=== PATIENT | female | born 1965 | race Caucasian/White ===

== ENCOUNTER → 2017-06-02 | Outpatient (CLI) | payer MEDICARE, SELFPAY | PROVIDERS: Referring Provider Pain Medicine Interventional Pain Medicine; Visit Provider Nurse Practitioner Family | DX: M54.16 Radiculopathy, lumbar region (principal) | CPT/HCPCS: 72146; 72148; 76376 ==

== ENCOUNTER → 2017-06-13 10:35 | Outpatient (CLI) | payer MEDICARE, SELFPAY ==
[2017-06-13 10:43] LABS: Microscopic, Urine URINE MICROSCOPIC (MICROSCOPIC)
[2017-06-13 11:05] LABS: Appearance,Urine CLEAR (Clear); Bilirubin,Urine Negative (Negative); Blood, Urine Negative (Negative); Color,Urine YELLOW (Yellow); Glucose,Urine (UA) Negative (Negative); Ketones,Urine Negative (Negative); Leukocyte Esterase,Urine Negative (Negative); Nitrate,Urine Negative (Negative); Protein,Urine Negative (Negative); Urobilinogen,Urine 0.2 EU/dl (0.2)
[2017-06-13 11:15] LABS: Bacteria,Urine 1+ /lpf; WBC,Urine Occasional #/hpf (0-3)
== END ==
PROVIDERS: PCP Nurse Practitioner Family; Visit Provider Nurse Practitioner Family
DX: R30.0 Dysuria (principal)
CPT/HCPCS: 81001

== ENCOUNTER → 2017-06-26 10:07 | Outpatient (CLI) | payer MEDICARE, SELFPAY ==
--- NOTE | 2017-06-26 10:12 | CT_ITS ---
CT abdomen pelvis wo/w con Ordering Physician: Camila Pat Patient Age: 52 years: Female HISTORY: ITS.REASON: CLOT HEMATURIA hematuria passing clots. Left-sided pain. TECHNIQUE: Helical CT scanning performed the abdomen and pelvis without contrast followed by postcontrast imaging at 70 seconds and then 6-7 minute delay images abdomen and pelvis. . These postcontrast images performed following 75 cc Isovue-[id number]. COMPARISON :September 2009 CT abdomen pelvis with contrast FINDINGS Kidneys. no urinary tract calculi nor discrete obstruction . I would note that the left ureter is slightly more generous than the right in its entire course. Nonspecific but could reflect a recently passed stone. No ureteral stone evident currently. No bladder calculi or discrete bladder mass. The lung bases with mild atelectasis and scarring at deep dependent right lung base more so the left. Liver, spleen, pancreas unremarkable on this study. Post contrast. Gallbladder is been removed. This accounts for the slightly generous upper normal common duct as it approaches head of pancreas. It but no retroperitoneal adenopathy no pelvic adenopathy. Small ventrall midline hernia 4 cm superior to the umbilicus. Abdominal wall defect and millimeters transverse x 6 mm height to this there is minimal protrusion of fat 2.5 cm fat-containing hernia sac with thin wall. No inflammation. GI tract. Appendix is normal. Moderate to generous stool throughout the colon small bowel appears normal. No bowel dilatation or obstruction. The adrenals unremarkable. Pelvis. Previous hysterectomy. No adnexal mass. No Pelvic mass nor adenopathy. . Osseous. No acute findings. Mild degenerative disc space narrowing L5/S1 with moderate facet hypertrophy L5/S1 L4/5. IMPRESSION 1. No urinary tract calculi. Kidneys unremarkable 2. Only note that Left ureter is only very slightly more generous caliber entire length vs right ureter. This minor degree of asymmetry of questionable significance. May merely be normal variation, although conceivably could reflect a recently passed stone or clot with given history. 3. . Urinary bladder upper normal wall thickness No bladder calculi no discrete bladder lesions or mass appreciated on this CT survey. 4.. No acute findings abdomen nor pelvis otherwise. . No adenopathy or mass. Hysterectomy Moderate to generous stool throughout colon 5. Small fat-containing ventral hernia superior to the umbilicus incidentally noted
--- NOTE | 2017-06-26 10:43 | HMH.ITSHM ---
trazadone tizanadine oxycodone lyrica b12 shots monthly omeprazole
== END ==
PROVIDERS: Family Provider Internal Medicine Adolescent Medicine; PCP Nurse Practitioner Family; Visit Provider Nurse Practitioner Family
DX: R31.9 Hematuria, unspecified (principal)
CPT/HCPCS: 74170; 74178; Q9967

== ENCOUNTER → 2018-02-15 07:46 | Outpatient (CLI) | payer MEDICARE, SELFPAY ==
[2018-02-15 08:17] LABS: Basophils % 0.6 % (0.1-2.0); Eosinophils # 0.1 K/mm3 (0.0-0.4); Eosinophils % 2.6 % (0.1-12.0); Hematocrit 41.7 % (37.0-47.0); Hemoglobin 13.9 g/dL (12.2-16.2); Lymphocytes # 1.4 K/mm3 (0.7-4.5); Lymphocytes % 33.1 K/mm3 (10-50); Mean Corpuscular HGB Conc 33.4 g/dL (31.8-35.4); Mean Corpuscular Hemoglobin 34.9 pg (27.0-31.2); Mean Corpuscular Volume 104.6 fl (81-99); Monocytes # 0.2 K/mm3 (0.1-1.0); Monocytes % 5.2 % (1.7-9.3); Neutrophils # 2.5 K/mm3 (1.8-7.8); Neutrophils % 58.6 % (37.0-80.0); Platelet Count 218 K/mm3 (142-424); Red Blood Count 3.98 M/mm3 (4.20-5.40); Red Cell Distribution Width 12.9 % (11.5-17.5); White Blood Count 4.3 K/mm3 (4.8-10.8)
[2018-02-15 08:57] LABS: Alanine Aminotransferase 19 U/L (12-78); Albumin Level 3.7 gm/dL (3.4-5.0); Albumin/Globulin Ratio 1.2 (1.1-1.8); Alkaline Phosphatase 94 U/L (46-116); Anion Gap 9.6 mEq/L (5-15); Aspartate Amino Transferase 7 U/L (15-37); Bilirubin,Total 0.3 mg/dL (0.2-1.0); Blood Urea Nitrogen 16 mg/dL (7-18); Calcium 8.7 mg/dL (8.5-10.1); Carbon Dioxide 30 mmol/L (21.0-32.0); Chloride 109 mmol/L (98-107); Cholesterol 181 mg/dL (140-200); Creatinine,Serum 0.99 mg/dL (0.55-1.02); Estimated Glomerular Filt Rate 58 ml/min (>60); GFR (African American) 70 ML/MIN (>60); Globulin 3.1 gm/dl (1.3-3.2); Glucose 100 mg/dL (74-106); HDL Cholesterol 61 mg/dL (29-89); LDL Cholesterol 98 mg/dL (0-130); Potassium 4.6 mmoL/L (3.5-5.1); Sodium 144 mmol/L (136-145); Thyroid Stimulating Hormone 0.97 uIU/ml (0.358-3.740); Total Protein,Serum 6.8 gm/dL (6.4-8.2); Triglycerides 111 mg/dL (30-200); VLDL Cholesterol 22 mg/dL (0-40)
[2018-02-16 19:04] LABS: Vitamin B12 642 pg/mL (232-1245); Vitamin D 25 Hydroxy 38.1 ng/mL (30.0-100.0)
== END ==
PROVIDERS: PCP Internal Medicine Adolescent Medicine; Visit Provider Nurse Practitioner Family
DX: E78.00 Pure hypercholesterolemia, unspecified (principal); J41.1 Mucopurulent chronic bronchitis; M79.2 Neuralgia and neuritis, unspecified; E53.8 Deficiency of other specified B group vitamins; M85.89 Other specified disorders of bone density and structure, multiple sites
CPT/HCPCS: 36415; 80053; 80061; 82607; 82652; 84443; 85025

== ENCOUNTER → 2018-04-17 09:46 | Outpatient (CLI) | payer MEDICARE, SELFPAY ==
--- NOTE | 2018-04-17 09:48 | FL_ITS ---
EXAM: Barium swallow/esophagram. INDICATION: ITS.REASON: Dysphagia ORDERING PHYSICIAN: Dani Vallejo MD PATIENT AGE: 53 years COMPARISON: None TECHNIQUE: In the upright position the patient was observed to swallow barium in both the AP and lateral view. The cervical esophagus was examined under fluoroscopy with images obtained. The patient was then placed prone in the right anterior oblique position and was observed to swallow barium with Valsalva technique . FLUOROSCOPY TIME: 56 seconds FINDINGS: There was no evidence of aspiration. There was normal peristalsis. No filling defects or mucosal abnormalities. No masses or strictures. The esophagus is midline. There is no evidence of hernia. Small osteophytes are present anteriorly at C5-C6 and C7 causing some indentation upon the posterior aspect of the esophagus. IMPRESSION: Minimal indentation upon the posterior aspect of the esophagus from osteophytes in the cervical spine otherwise negative barium swallow
--- NOTE | 2018-04-17 09:48 | US_ITS ---
US thyroid HISTORY: ITS.REASON: Dysphagia ORDERING PHYSICIAN: Dani Vallejo MD PATIENT AGE: 53 years Comparison: None FINDINGS: The right lobe is 4.2 x 1.6 x 1.4 cm. There is a vague area of decreased echogenicity involving the lower lobe posteriorly. This area measures 9 x 7 mm and is nonspecific. The left lobe is 4 x 1.1 x 1.3 cm and has an unremarkable appearance. The isthmus is unremarkable. IMPRESSION: Possible 9 x 7 mm nodule in the lower pole on the right. Consider 6 month follow-up to confirm stability
[2018-04-17 14:09] LABS: Free T4 (Free Thyroxine) 1.12 ng/dl (0.76-1.46); Thyroid Stimulating Hormone 0.58 uIU/ml (0.358-3.740)
== END ==
PROVIDERS: PCP Nurse Practitioner Family; Visit Provider Otolaryngology
DX: R13.10 Dysphagia, unspecified (principal)
CPT/HCPCS: 36415; 74220; 76536; 84439; 84443

== ENCOUNTER → 2018-07-30 13:46 | Outpatient (CLI) | payer MEDICARE, SELFPAY ==
--- NOTE | 2018-07-30 13:48 | US_ITS ---
US thyroid HISTORY: Follow-up thyroid nodule ITS.REASON: thyroid nodule ORDERING PHYSICIAN: Dani Vallejo MD PATIENT AGE: 53 years Comparison: None FINDINGS: The right lobe is 4.4 x 1.4 x 1.4 cm. There remains a vague area of slight decreased echogenicity in the right lobe mid aspect 9 x 6 mm similar compared to the previous exam. The left lobe measures 4.1 x 1.5 x 1.7 cm.. IMPRESSION: Vague 9 mm nodule in the right lobe of the thyroid gland not significant change. Continued follow-up recommended. MRI of the neck without and with contrast may be of further value for possible nodule
== END ==
PROVIDERS: PCP Nurse Practitioner Family; Visit Provider Otolaryngology
DX: E01.0 Iodine-deficiency related diffuse (endemic) goiter (principal)
CPT/HCPCS: 76536

== ENCOUNTER → 2018-09-19 15:52 | Outpatient (CLI) | payer MEDICARE, SELFPAY ==
--- NOTE | 2018-09-19 16:00 | MR_ITS ---
MR lumbar spine wo con, MR 3-d myelogram/MRCP HISTORY: LBP X Years. Left leg pain, numbness and tingling. HX of Neuropathy. PT states left leg feels heavy. ITS.REASON: ACUTE LEFT-SIDED LOW BACK PAIN WITH LEFT SIDE SCIATICA ORDERING PHYSICIAN: Camila Pat PATIENT AGE: 53 years Comparison: MR 06/02/17 TECHNIQUE: Standard multiplanar multiecho sequences are performed without contrast. 3-D MIP and myelographic images are also rendered and reviewed FINDINGS: There is normal alignment. The spinal cord is at the L1 level. T11-T12: Minimal endplate irregularity. T12-L1: Small Schmorl's node is present along the inferior endplate of T12. L1-L2: Unremarkable L2-L3: Unremarkable. L3-L4: Unremarkable. L4-5: Minimal bulging disc along with mild facet and ligamentum flavum hypertrophy with mild left foraminal narrowing L5-S1: There is a medium-sized central/left paracentral disc herniation with inferior extrusion. This does abut the medial aspect of the left S1 nerve root and the anterior aspect of the left S2 nerve root. Previously there was a small left paracentral disc protrusion at this region. IMPRESSION: Medium sized central/left paracentral extruded herniated disc at L5-S1 within. Extrusion of the disc by approximately 1 cm abutting the medial aspect of the left S1 nerve root sleeve and the anterior aspect of the left S2 nerve root sleeve. This has developed since the previous exam
== END ==
PROVIDERS: PCP Nurse Practitioner Family; Visit Provider Nurse Practitioner Family
DX: M54.42 Lumbago with sciatica, left side (principal); M47.816 Spondylosis without myelopathy or radiculopathy, lumbar region
CPT/HCPCS: 72148; 76376

== ENCOUNTER → 2019-03-25 09:46 | Outpatient (CLI) | payer MEDICARE, SELFPAY ==
[2019-03-25 10:34] LABS: Basophils % 0.7 % (0.1-2.0); Eosinophils # 0.2 K/mm3 (0.0-0.4); Eosinophils % 3.9 % (0.1-12.0); Hematocrit 45.2 % (37.0-47.0); Hemoglobin 13.8 g/dL (12.2-16.2); Lymphocytes # 1.3 K/mm3 (0.7-4.5); Lymphocytes % 25.4 % (10-50); Mean Corpuscular HGB Conc 30.4 g/dL (31.8-35.4); Mean Corpuscular Hemoglobin 33.1 pg (27.0-31.2); Mean Corpuscular Volume 108.9 fl (81-99); Mean Platelet Volume 7.4 fl (7.4-10.4); Monocytes # 0.2 K/mm3 (0.1-1.0); Neutrophils # 3.5 K/mm3 (1.8-7.8); Platelet Count 264 K/mm3 (142-424); Red Blood Count 4.15 M/mm3 (4.20-5.40); White Blood Count 5.3 K/mm3 (4.8-10.8)
[2019-03-25 13:38] LABS: Alanine Aminotransferase 28 U/L (12-78); Albumin/Globulin Ratio 1.2 (1.1-1.8); Alkaline Phosphatase 96 U/L (46-116); Anion Gap 13.2 mEq/L (5-15); Aspartate Amino Transferase 21 U/L (15-37); Bilirubin,Total 0.4 mg/dL (0.2-1.0); Blood Urea Nitrogen 10 mg/dL (7-18); Calcium 9.4 mg/dL (8.5-10.1); Carbon Dioxide 29 mmol/L (21.0-32.0); Chloride 103 mmol/L (98-107); Chol/HDL Ratio 2.8 (1-3.5); Cholesterol 212 mg/dL (140-200); Creatinine,Serum 0.75 mg/dL (0.55-1.02); Estimated Glomerular Filt Rate 80 ml/min (>60); GFR (African American) 97 ML/MIN (>60); Globulin 3.4 gm/dl (1.3-3.2); Glucose 102 mg/dL (74-106); HDL Cholesterol 75 mg/dL (29-89); LDL Cholesterol 119 mg/dL (0-130); Potassium 4.2 mmoL/L (3.5-5.1); Sodium 141 mmol/L (136-145); Total Protein,Serum 7.4 gm/dL (6.4-8.2); Triglycerides 90 mg/dL (30-200); VLDL Cholesterol 18 mg/dL (0-40)
[2019-03-28 17:02] LABS: Vitamin D 25 Hydroxy 32.6 ng/mL (30.0-100.0)
[2019-03-29 17:25] LABS: Folate 8.3 ng/mL (>3.0); Vitamin B12 705 pg/mL (232-1245)
== END ==
PROVIDERS: Visit Provider Nurse Practitioner Family
DX: D75.89 Other specified diseases of blood and blood-forming organs (principal); Z79.899 Other long term (current) drug therapy
CPT/HCPCS: 36415; 80053; 80061; 82607; 82652; 82746; 85025

== ENCOUNTER → 2020-03-25 10:25 | Outpatient (CLI) | payer MEDICARE, SELFPAY ==
[2020-03-25 18:09] LABS: Adenovirus,PCR Not Detected (NotDetected); Bordetella Pertussis Not Detected (NotDetected); Chlamydophila Pneumoniae, PCR Not Detected (NotDetected); Coronavirus 19, PCR Not Detected (NotDetected); Coronavirus 229E Not Detected (NotDetected); Coronavirus NL63 Not Detected (NotDetected); Coronavirus OC43 Not Detected (NotDetected); Coronovirus HKU1,PCR Not Detected (NotDetected); Human Metapneumovirus Not Detected (NotDetected); Influenza A, PCR Not Detected (NotDetected); Influenza AH1, 2009 Not Detected (NotDetected); Influenza AH1, PCR Not Detected (NotDetected); Influenza AH3,PCR Not Detected (NotDetected); Influenza B, PCR Not Detected (NotDetected); Mycoplasma Pneumoniae, PCR Not Detected (NotDetected); Parainfluenza 1, PCR Not Detected (NotDetected); Parainfluenza 2, PCR Not Detected (NotDetected); Parainfluenza 3, PCR Not Detected (NotDetected); Parainfluenza 4, PCR Not Detected (NotDetected); Respiratory Syncytial Virus Not Detected (NotDetected); Rhinovirus/Enterovirus Not Detected (NotDetected)
== END ==
PROVIDERS: PCP Internal Medicine Adolescent Medicine; Visit Provider Nurse Practitioner Family
DX: R06.02 Shortness of breath (principal)
CPT/HCPCS: 87581; 87633; 87798; U0003

== ENCOUNTER → 2020-09-23 08:49 | Outpatient (CLI) | payer MEDICARE, SELFPAY ==
--- NOTE | 2020-09-23 08:55 | MM_ITS ---
PROCEDURE: MM DIG SCREENING MAMM BI W/CAD Digital Breast Tomosynthesis Included CLINICAL INDICATION: SCREENING There is no personal or family history of breast cancer. There has been a previous cyst aspiration right breast with benign findings. COMPARISON: MG DMSB DIG MAMM-SCREEN SELMA from 04/05/2013 MG DMSB DIG MAMM-SCREEN SELMA from 07/08/2014 MG DMDB DIG MAMM-DX SELMA W/CAD from 12/16/2016 TECHNIQUE: Standard CC and MLO images and 3D Tomosynthesis was obtained. R2 CAD reviewed. FINDINGS: Moderate fibroglandular densities are seen in both breast in the findings are fairly symmetrical bilaterally. There are 3-4 small oil cysts central portion right breast. There is an asymmetric nodular density inner quadrant left breast which is stable and unchanged from mammograms dating back to 04/05/2013. There is a possible new nodular density just deep to and below the nipple right breast. Recommend the patient return for spot compression views and ultrasound for additional evaluation of the lesion marked on the film. There are no suspicious microcalcifications. IMPRESSION: Moderate breast density with possible new lesion right breast BI-RAD Category: 0 Need Additional Imaging Evaluation FOLLOW-UP: IMM Immediate Follow-up Recommended (A letter has been sent to the patient regarding results of the study.) Dictated by: Dr. Shaun Horne MD 09/25/2020 12:10 Dr. Shaun Horne MD in [place] 09/25/2020 12:10
[2020-09-23 10:15] LABS: Basophils % 0.7 % (0.1-2.0); Eosinophils # 0.3 K/mm3 (0.0-0.4); Hematocrit 43.4 % (37.0-47.0); Hemoglobin 14.6 g/dL (12.2-16.2); Lymphocytes # 1.7 K/mm3 (0.7-4.5); Mean Corpuscular HGB Conc 33.6 g/dL (31.8-35.4); Mean Corpuscular Hemoglobin 33.4 pg (27.0-31.2); Mean Corpuscular Volume 99.3 fl (81-99); Mean Platelet Volume 7.1 fl (7.4-10.4); Monocytes # 0.2 K/mm3 (0.1-1.0); Monocytes % 3.7 % (1.7-9.3); Neutrophils # 3.2 K/mm3 (1.8-7.8); Neutrophils % 59.5 % (37.0-80.0); Platelet Count 265 K/mm3 (142-424); Red Blood Count 4.37 M/mm3 (4.20-5.40); Red Cell Distribution Width 13.4 % (11.5-17.5); White Blood Count 5.3 K/mm3 (4.8-10.8)
[2020-09-23 10:46] LABS: Alanine Aminotransferase 16 U/L (12-78); Albumin Level 4.7 g/dl (3.5-5.0); Albumin/Globulin Ratio 1.7 (1.1-1.8); Alkaline Phosphatase 81 U/L (38-126); Anion Gap 11.3 mEq/L (5-15); Aspartate Amino Transferase 25 U/L (14-36); Bilirubin,Total 0.5 mg/dl (0.2-1.3); Blood Urea Nitrogen 14 mg/dl (7-17); Calcium 9.6 mg/dl (8.4-10.2); Carbon Dioxide 28 mmol/L (22.0-30.0); Chloride 103 mmol/L (98-107); Chol/HDL Ratio 3.9 (1-3.5); Cholesterol 234 mg/dl (140-200); Estimated Glomerular Filt Rate 74 ml/min (>60); GFR (African American) 89 ML/MIN (>60); Globulin 2.7 g/dL (1.3-3.2); Glucose 102 mg/dl (74-100); HDL Cholesterol 60 mg/dl (40-60); Potassium 4.3 mmoL/L (3.5-5.1); Sodium 138 mmol/L (136-145); Total Protein,Serum 7.4 g/dl (6.3-8.2); Triglycerides 167 mg/dl (30-150); VLDL Cholesterol 33 mg/dL (0-40)
[2020-09-23 10:57] LABS: Direct LDL Cholesterol 126.79 mg/dL (100-129)
[2020-09-23 11:35] LABS: Vitamin B12 840 pg/mL (239-931)
[2020-09-23 14:18] LABS: 25-OH Vitamin D, Total 40.2 ng/mL (30-100)
[2020-09-24 14:12] LABS: Hemoglobin A1C 5.4 % (4.0-6.0)
== END ==
PROVIDERS: Nurse Practitioner Family; PCP Nurse Practitioner Family; Visit Provider Internal Medicine Adolescent Medicine
DX: Z12.31 Encounter for screening mammogram for malignant neoplasm of breast (principal); R73.9 Hyperglycemia, unspecified; R53.83 Other fatigue; E53.8 Deficiency of other specified B group vitamins; M79.2 Neuralgia and neuritis, unspecified; Z00.00 Encounter for general adult medical examination without abnormal findings; Z79.899 Other long term (current) drug therapy
CPT/HCPCS: 36415; 77063; 77067; 80053; 80061; 82306; 82607; 83036; 84443; 85025

== ENCOUNTER → 2020-10-14 14:38 | Outpatient (CLI) | payer MEDICARE, SELFPAY ==
--- NOTE | 2020-10-14 14:42 | MM_ITS ---
PROCEDURE: MM DIG MAMM DX UNILAT RT CAD Digital Breast Tomosynthesis Included Right breast ultrasound complete CLINICAL INDICATION: ABN MAMM COMPARISON: MG DMSB DIG MAMM-SCREEN SELMA from 07/08/2014 MG DMDB DIG MAMM-DX SELMA W/CAD from 12/16/2016 MG MM DIG SCREENING MAMM BI W/CAD from 09/23/2020 US US BREAST RT COMPLETE from 10/14/2020 TECHNIQUE: Problem solving views performed along with right breast ultrasound. FINDINGS: A 4 mm nodule is present the inferior aspect of the right breast which is well-circumscribed. No suspicious nodule is evident. Right breast ultrasound: 5 mm cyst is present in the 6 o'clock region of the right breast. There are some low level echoes peripherally. This may correspond to the mammographic abnormality. A 2 mm x 3 mm cyst is present at 11 o'clock. 3 mm cyst is present at 10 o'clock with some minimal nodularity laterally. IMPRESSION: Complicated right breast cysts. Probably benign . Recommend six-month mammographic and sonographic follow-up BI-RAD Category: 3 Probably Benign Finding Short Term Follow-up FOLLOW-UP: 6M 6Month Follow-up (A letter has been sent to the patient regarding results of the study.) Dictated by: Bethel Oglesby MD 10/16/2020 18:38 Bethel Oglesby MD in [place] 10/16/2020 18:38
== END ==
PROVIDERS: PCP Nurse Practitioner Family; Visit Provider Nurse Practitioner Family
DX: R93.89 Abnormal findings on diagnostic imaging of other specified body structures (principal); R92.8 Other abnormal and inconclusive findings on diagnostic imaging of breast
CPT/HCPCS: 76641; 77061; 77065; G0279

== ENCOUNTER → 2020-10-22 15:13 | Outpatient (CLI) | payer MEDICARE, SELFPAY ==
--- NOTE | 2020-10-22 15:15 | CT_ITS ---
PROCEDURE: CT LUNG SCREENING CLINICAL INDICATION: H/O NICOTINE DEPENDENCE COMPARISON: CT CHW CT CHEST W/ CONTRAST from 04/05/[address] CHEST W/O CONTRAST from 09/13/2013 TECHNIQUE: The exam was performed on a GE Light Speed [address] scanner using 2.90 mGy CTDI. A low dose helical CT CHEST was performed on a multi-detector scanner. All CT scans at the facility use one or more dose reduction, viz: automated exposure control, ma/kV adjustment per patient size (including targeted exams where dose is matched to indication, i.e. head), or iterative reconstruction technique. The LDCT was performed in a facility that meets the criteria for the screening program. Data regarding this exam was submitted to ACR which is an approved registry. The order for this exam indicates that it came as a result of a lung cancer screening counseling shard decision-making visit that included all the elements required of such a visit including smoking cessation. The radiologist interpreting this exam meets the CMS criteria for the LDCT lung cancer screening program. The exam is reported using the Lung-RADS classification scale and reported to the ACR registry. NOTE: This study was performed for the specific purposes of lung cancer screening and is not an alternative to diagnostic chest CT. RADIATION DOSE: CTDI vol(CT dose Index-volume) = 2.90mG DLP (Dose Length Product) = mGcm FINDINGS: Minor interstitial reticulations noted in the left upper lobe, demonstrates no significant interval change. Bilateral subpleural interstitial reticulations noted in the left lower lobes. Minor paraseptal emphysematous changes. No lobar consolidation, pleural effusions or pneumothorax. The central tracheobronchial tree is patent. Nodule in the right upper lobe measuring 0.3 cm (series 4, image 48). Unchanged nodule in the left upper lobe measuring 6 millimeters (series 3, image 29). Subpleural nodule in the left lower lobe abutting the fissure measuring 4 millimeters, unchanged. No suspicious lung nodules are noted. Calcified granuloma in the right upper lobe. The heart size is normal. No evidence of pericardial effusions. Atherosclerotic vascular calcification of the thoracic aorta and the coronary arteries are noted. Evaluation of the alejandro is limited due to lack of intravenous contrast although no gross lymphadenopathy is noted. Calcified lymph nodes noted in the mediastinum, not significant by size criteria. Evaluation of the upper abdominal solid viscera is limited due to lack of intravenous contrast. Cholecystectomy is noted. Otherwise the visualized upper abdominal solid organs are unremarkable. Neural stimulator device leads are noted in the spinal canal up to level of mid thoracic spine. Minor multilevel degenerative changes of the thoracic spine are noted. IMPRESSION: Lung-RADS Category 2 Benign Appearance or Behavior Follow-up: Noncontrast low-dose CT thorax in 1 year. Minor interstitial lung disease, demonstrates no significant interval change compared to prior study. Minor emphysematous changes. Dictated by: Joselyn Peña 10/23/2020 10:30 Joselyn Peña in [place] 10/23/2020 10:30
== END ==
PROVIDERS: PCP Nurse Practitioner Family; Visit Provider Nurse Practitioner Family
DX: Z87.891 Personal history of nicotine dependence (principal); Z12.2 Encounter for screening for malignant neoplasm of respiratory organs
CPT/HCPCS: 71271

== ENCOUNTER → 2021-02-02 11:37 | Outpatient (CLI) | payer MEDICARE, SELFPAY ==
--- NOTE | 2021-02-02 | CA_ITS ---
APPROVED REPORT Exam: Pharmacologic Technologist: Charlette Uribe Ht: 5 ft 7 in Wt: 141 lbs BSA: 1.74 m2 HR: 73 bpm BP: 122/77 mmHg Indications: HYPERtension Medical History Medications: Omeprazole,,,,, Trazadone,,,,, Flonase,,,,, Tizanidine,,,,, Pregabalin,,,,, StIOLto,,,,, Stress Test Details Test: LEXISCAN HR Resting HR: 83 bpm Max Heart Rate (APMHR): 162.063257 bpm Max HR Achieved: 116 bpm Target HR (85% APMHR): 137.581675 bpm % of APMHR: 71.60 Recovery HR: 92 bpm BP Resting BP: 122.0/77.0 mmHg Max BP: 122.0/77.0 mmHg Recovery BP: 117.0/80.0 mmHg ECG Resting ECG: Normal sinus rhythm Clinical Exercise duration: 04:00 min Highest Stage Achieved: Exercise capacity: 1.0 METs Stress ECG Conclusion Symptoms: Mild chest pressure, brief shortness of air and malaise Arrhythmias/Ectopy: None ST-T Changes: [address] depression inferiorly and 0.5 mm anterolaterally. Conclusion: EKG changes suggestive of ischemia with Lexiscan stress. Myoview images reported separately. Test Summary REST . . . . . . . Resting REST 03:20 . . 83 . 122/ 77 . . Stage 1 . . . . . . . Myoview Injected Stage 1 01:00 . . 109 . . . . Stage 2 . . . . . . . chest tightness Stage 2 01:00 . . 113 . 113/ 70 . . Stage 3 01:00 . . 110 . 116/ 71 . . Stage 4 01:00 . . 107 . 109/ 76 . Stop exercise at 04:00 RECOVERY 01:00 . . 99 . 119/ 78 . . RECOVERY 02:00 . . 92 . 119/ 78 . . RECOVERY 03:00 . . 94 . 117/ 80 . . RECOVERY 03:19 . . 97 . 117/ 80 . . Electronically signed by : Mani Allison MD 02/02/2021 18:48:32
--- NOTE | 2021-02-02 11:41 | NM_ITS ---
APPROVED REPORT Exam: Nuclear Stress Test Indication: chest pain..short of breath..palpitations..fatigue Patient Location: Outpatient Stress Tech: Charlette Uribe NM Tech:Jada Lobo, ARRT, RT (R)(N) Ht: 5 ft 7 in Wt: 141 lbs Bra Size: 34c HR: 73 bpm BP: 122/77 mmHg BSA: 1.74 m2 BMI: 22.0 History: chest pain..short of breath..palpitations..fatigue Procedure: Patient received a 0.4 mg of intravenous Lexiscan, resting heart rate 73 bpm, resting blood pressure 122/77 mmHg, with Lexiscan maximum heart rate achived was 110 bpm which is Less than 85 85 % of the maximum predicted heart rate and blood pressure was 113/70 mmHg. Electrocardiogram Resting electrocardiogram showed sinus rhythm, with Lexiscan there is almost a millimeter ST segment depression noted from the baseline EKG. The EKG portion of the Lexiscan is positive for ischemia. Cardiac Stress and Resting SPECT Images: Cardiac Stress and Resting SPECT images were obtained using technetium 99m Myoview 30.2 mCi stress and 10.55 mCi at rest. Gated SPECT for analysis of segmental wall motion and calculation of the ejection fraction also done. Cardiac stress and resting SPECT images show uniform myocardial activity without segmental perfusion abnormality, computer derived ejection fraction is over 65% with no regional wall motion abnormality, right ventricle is normal size and contractility. Conclusion: 1. The EKG portion of the Lexiscan is positive for ischemia. 2. No scintigraphic evidence of reversible ischemia seen, computer ejection fraction is 60% with no regional wall motion abnormality, right ventricle is normal size and contractility. Electronically signed by : Mani Allison MD 02/02/2021 19:12:18
--- NOTE | 2021-02-02 13:36 | HMH.ITSHM ---
Current Home Medications as stated by this patient Beverly Styles or registered representative. []VITAMIN B12 TRAZODONE PREGAVALIN OMEPRAZOLE TIZANIDINE TIOTROPIUM FLUTICASONE
== END ==
PROVIDERS: PCP Nurse Practitioner Family; Visit Provider Nurse Practitioner Family
DX: R03.0 Elevated blood-pressure reading, without diagnosis of hypertension (principal); R07.9 Chest pain, unspecified
CPT/HCPCS: 78452; 93017; A9502; J2785

== ENCOUNTER → 2021-02-04 11:55 | Outpatient (CLI) | payer MEDICARE, SELFPAY ==
[2021-02-04 12:45] LABS: Basophils % 0.9 % (0.1-2.0); Eosinophils # 0.1 K/mm3 (0.0-0.4); Eosinophils % 2.8 % (0.1-12.0); Hematocrit 42.1 % (37.0-47.0); Hemoglobin 14.3 g/dL (12.2-16.2); Lymphocytes # 1.7 K/mm3 (0.7-4.5); Lymphocytes % 35.2 % (10-50); Mean Corpuscular HGB Conc 34.1 g/dL (31.8-35.4); Mean Corpuscular Hemoglobin 35.7 pg (27.0-31.2); Mean Corpuscular Volume 104.7 fl (81-99); Mean Platelet Volume 8.6 fl (7.4-10.4); Monocytes # 0.2 K/mm3 (0.1-1.0); Monocytes % 4.3 % (1.7-9.3); Neutrophils # 2.7 K/mm3 (1.8-7.8); Neutrophils % 56.8 % (37.0-80.0); Platelet Count 260 K/mm3 (142-424); Red Blood Count 4.02 M/mm3 (4.20-5.40); Red Cell Distribution Width 12.8 % (11.5-17.5); White Blood Count 4.8 K/mm3 (4.8-10.8)
[2021-02-04 13:53] LABS: Alanine Aminotransferase 14 U/L (12-78); Albumin Level 4.5 g/dl (3.5-5.0); Albumin/Globulin Ratio 1.6 (1.1-1.8); Alkaline Phosphatase 77 U/L (38-126); Anion Gap 9.3 mEq/L (5-15); Aspartate Amino Transferase 22 U/L (14-36); Bilirubin,Total 0.4 mg/dl (0.2-1.3); Blood Urea Nitrogen 14 mg/dl (7-17); Calcium 9.5 mg/dl (8.4-10.2); Carbon Dioxide 31 mmol/L (22.0-30.0); Chloride 104 mmol/L (98-107); Chol/HDL Ratio 2.7 (1-3.5); Cholesterol 149 mg/dl (140-200); Estimated Glomerular Filt Rate 86 ml/min (>60); GFR (African American) 104 ML/MIN (>60); Globulin 2.8 g/dL (1.3-3.2); Glucose 99 mg/dl (74-100); HDL Cholesterol 55 mg/dl (40-60); Potassium 4.3 mmoL/L (3.5-5.1); Sodium 140 mmol/L (136-145); Total Protein,Serum 7.3 g/dl (6.3-8.2); Triglycerides 125 mg/dl (30-150); VLDL Cholesterol 25 mg/dL (0-40)
[2021-02-04 14:04] LABS: Direct LDL Cholesterol 62.79 mg/dL (100-129)
[2021-02-05 08:17] LABS: HSV 2 IgG, Type Spec 8.75 index (0.00-0.90)
== END ==
PROVIDERS: Nurse Practitioner Family; Visit Provider Internal Medicine Cardiovascular Disease
DX: R94.39 Abnormal result of other cardiovascular function study (principal); N76.6 Ulceration of vulva; Z79.899 Other long term (current) drug therapy
CPT/HCPCS: 36415; 80053; 80061; 85025; 86695; 86790

== ENCOUNTER → 2021-02-20 17:13 | Outpatient (CLI) | payer MEDICARE, SELFPAY | PROVIDERS: PCP Nurse Practitioner Family; Visit Provider Internal Medicine Cardiovascular Disease | DX: I20.9 Angina pectoris, unspecified (principal); R07.9 Chest pain, unspecified; R94.30 Abnormal result of cardiovascular function study, unspecified; Z01.812 Encounter for preprocedural laboratory examination; Z11.52 Encounter for screening for COVID-19 | CPT/HCPCS: C9803; U0003; U0005 ==

== ENCOUNTER 2021-02-23 07:26 | Day surgery (SDC) | payer MEDICARE, SELFPAY ==
[2021-02-23] VITALS (9 sets, daily range): BP systolic 91–120; BP diastolic 52–71; PULSE 70–79; RESP 18–20; TEMP 36.6; O2SAT 92–100; BMI 22.5
--- NOTE | 2021-02-23 | IR_ITS ---
APPROVED REPORT Patient Location: Outpatient PROCEDURES Left heart catheterization Left ventriculogram Selective coronary angiogram INDICATION Angina pectoris, Abnormal stress test Informed consent was obtained prior to the procedure. COMPLICATIONS None Estimated Blood Loss: Less than 10 mls TECHNIQUE One percent lidocaine used to anesthetize the right anterior aspect of the wrist. The right radial artery was accessed via the Seldinger technique. A 6 Croatian sheath was placed in the right radial artery. 2.5 mg of verapamil, 800 mcg of nitroglycerin, 1mg Lidocaine and 5000 U Heparin were given through the arterial sheath. The trap catheter was also used to perform left heart catheterization, left ventriculogram and selective coronary angiogram. At the end of the procedure the sheath was removed good hemostasis was achieved using Traclet band, patient was transferred to the postop holding area in stable condition. ANGIOGRAPHIC RESULTS The left main artery Normal The left anterior descending artery Is calcifications which start in the proximal segment and extend into the mid segment. There is a smooth proximal 30% and then 40 to 50% proximal stenosis. The remaining LAD is widely patent The circumflex artery Is nondominant and proximally normal with a proximal 30% stenosis in a large second obtuse marginal artery The right coronary artery Is a dominant vessel and has mid vessel 40% stenoses and distal 40% smooth stenosis The MALIN ventriculogram reveals Normal 65% The left ventricular end-diastolic pressure 10 mmHg IMPRESSION Moderate coronary artery disease as described above Normal ejection fraction Normal left ventricular end-diastolic pressure PLAN 1. Currently patient is only on one antianginal medication. I recommend maximizing medications with at least 2 antianginals 2. Recommended LDL is less than 55. Patient is currently not on a statin therefore Lipitor 40 mg daily will be started 3. At this point I am strongly in favor of medical management. I believe with tobacco cessation and appropriate antianginal medications with disease modifying medications patient's coronary disease can be stable for many years. Should patient continue to experience angina pectoris despite 2 antianginal medications then consideration will be given to stent the proximal LAD 4. Immediate avoidance of tobacco products 5. Aggressive risk factor modification Electronically signed by : Dre Kendrick MD 02/23/2021 12:03:35
--- NOTE | 2021-02-23 07:31 | CA_ITS ---
APPROVED REPORT EXAM: Comprehensive 2D, Doppler, and color-flow Echocardiogram Sample Hand: Heather Fernandez RT(R) Ht: 5 ft 7 in Wt: 144lbs BSA: 1.76 BP: 111/76 mmHg Indications: Abn GXT, CP, family history HD 2D Dimensions LVOT 1.87 cm (M/F) 1.5-2.5 LA Volume 22.10 mL LA Volume Index 12.55 mL/m2 (M/F) 16-34 M-Mode Dimensions RVDd 2.36 cm (0.9-2.6) LA Diam 3.09 cm (1.9-4.0) LVDd 4.89 cm (3.5-5.7) Ao Diam 2.62 cm (2.0-3.7) LVDs 3.82 cm (3.5-5.7) IVSd 0.57 cm (0.6-1.1) PWd 0.75 cm (0.6-1.1) EF (Teich) 44.20% FS 21.90% EDV (Teich) 112.30 mL ESV (Teich) 62.70 mL LV Diastology E Decel Time 187.00 (160-240 msec) E/A Ratio 1.1 MED E' 7.30 (< 7 cm/sec) E'/MED E' Ratio 11.00 (>14) LAT E' 9.90 (<10 cm/sec) E/LAT E' Ratio 8.11 (>14) Mitral Valve MV E Max Evert. 80.00 (40-130 cm/s) MV A Velocity 75.00 (40-130 cm/s) E/A Ratio 1.07 MV Decel. Time 187.00 (160-240 ms) MV PHT 55.00 ms Left Ventricle Left atrium is normal size, left ventricle is normal size, there is no concentric left ventricular hypertrophy, visually estimated ejection fraction 55% with no regional wall motion abnormality, diastolic parameters are within normal range. Right Ventricle Right atrium and right ventricle are normal size and contractility. Aortic Valve Aortic valve is grossly normal, there is no aortic stenosis or aortic insufficiency. Mitral Valve Mitral valve is grossly normal, there is trace mitral regurgitation. Tricuspid Valve Tricuspid valve grossly normal, there is trace tricuspid regurgitation, tricuspid regurgitation jet velocity is inadequate for calculation of the right ventricular systolic pressure. Pulmonic Valve Pulmonic valve is poorly visualized. Great Vessels Aortic root is normal size. Inferior vena cava is poorly visualized. Pericardium No significant pericardial effusion noted. Conclusion 1. Normal left ventricular size, preserved left ventricular systolic function, visually estimated ejection fraction 55% with no regional wall motion abnormality, diastolic parameters are within normal range. 2. Trace mitral and tricuspid regurgitation. 3. No significant pericardial effusion noted. Electronically signed by : Mani Allison MD 02/23/2021 17:44:42
== END 2021-02-23 15:08 | disposition home or self-care (01) ==
LOC: CATHLAB 07:28
PROVIDERS: PCP Nurse Practitioner Family; Visit Provider Internal Medicine
DX: I25.118 Atherosclerotic heart disease of native coronary artery with other forms of angina pectoris (principal); R07.9 Chest pain, unspecified; R94.30 Abnormal result of cardiovascular function study, unspecified; Z79.899 Other long term (current) drug therapy; F17.210 Nicotine dependence, cigarettes, uncomplicated
CPT/HCPCS: 93306; 93458; 99152; C1725; C1769; J1644; Q9967

== ENCOUNTER → 2021-05-21 10:48 | Outpatient (CLI) | payer MEDICARE, SELFPAY ==
--- NOTE | 2021-05-21 10:50 | FL_ITS ---
PROCEDURE: FL UPPER GI W AIR CLINICAL INDICATION: GERD COMPARISON: CT CT LUNG SCREENING from 10/22/2020 TECHNIQUE: FLUOROSCOPY TIME : 1 minutes and 30 seconds FINDINGS: There is mild amount GE reflux noted during the exam. No hiatal hernia. Mildly prominent anterior osteophytes are present at C5-C6 and C6-C7 causing mild posterior indentation upon the esophagus. There is a small diverticulum projecting off the descending portion of the duodenum. There is mild prominence of the gastric rugal folds which could be seen with gastritis. No obvious ulcer or mass. Small clips are present in the region of the thyroid gland. IMPRESSION: Mild GE reflux. Mildly prominent osteophytes at C5-C6 and C6-C7 causing minimal indentation upon the posterior aspect of the esophagus Possible gastritis Small duodenal diverticulum Dictated by: Bethel Oglesby MD 05/21/2021 13:52 Bethel Oglesby MD in [place] 05/21/2021 13:52
== END ==
PROVIDERS: PCP Nurse Practitioner Family; Visit Provider Nurse Practitioner Family
DX: K21.00 Gastro-esophageal reflux disease with esophagitis, without bleeding (principal)
CPT/HCPCS: 74246

== ENCOUNTER → 2021-06-28 16:07 | Outpatient (CLI) | payer MEDICARE, SELFPAY | PROVIDERS: PCP Nurse Practitioner Family; Visit Provider Internal Medicine Gastroenterology | DX: Z01.818 Encounter for other preprocedural examination (principal); Z11.52 Encounter for screening for COVID-19 | CPT/HCPCS: C9803; U0003; U0005 ==

== ENCOUNTER 2021-07-01 08:21 | Day surgery (SDC) | payer MEDICARE, SELFPAY ==
[2021-06-25 09:05] VITALS: BMI 22.4
[2021-07-01 08:43] VITALS: BP 149/91; PULSE 78; RESP 18; TEMP 37; O2SAT 96
--- NOTE | 2021-07-01 08:53 | P.PN_ITS ---
[facility] Anesthesia Checklist - Patient Identification Patient Identification: Arm Band - Structural Data Admitted From: Home Planned Operative Procedure/s: EGD Consent for Planned Operative Procedure(s) Verified: Yes - NPO Status Verified Time NPO: 00:00 - Additional verifications Anesthesia Reactions: No Hx Blood Transfusions: No Blood Transfusion Reaction: No - Airway Assessment C-Spine Mobility Assessed: Yes TMJ Mobility Assessed: Yes Dentition: Good Dentition - Neurological Assessment Level of Consciousness: Awake Hx Seizures: No Numbness or tingling in extremities: No - Anesthesia Plan Anesthesia Risk discussed: Yes Anesthesia Plan: Verified ASA Class: II Anesthesia Type: MAC [facility] History I have reviewed the patient's past medical history: Yes Medical History: Reports:: Coronary Artery Disease, Gastroesophageal Reflux Disease(GERD), Hypertension Denies:: Cancer, Diabetes Mellitus Type 1, Diabetes Mellitus Type 2, Internal Pacemaker, Lung Disease, MRSA, Seizures *Have you ever received a pneumonia vaccine?: Yes *Have you received a flu vaccine this season?: No Other Medical History: Reports: Arthritis, Other. Denies: Blood Transfusion Reaction Anesthesia experience/problems:: None Laterality Cases: Bilateral: Other Other Surgeries: Yes: Colonoscopy, EGD, Hysterectomy-Total, Hysterectomy- Partial, Other. No: Pacemaker Amputation: No Fractures: No - *Social History Last grade of school completed: Some college Smoking Status: Current every day smoker Tobacco Type: cigarettes # Packs/Day (cigarettes): 1 Alcohol Intake: never Alcohol Intake Frequency:: a few times a month Substance Use Type: denies use *Occupational Status:: unemployed Housing: house Household Members: spouse *Travel in the last 8 weeks: None Family Hx:: Coronary Artery Disease, Hypertension
[2021-07-01 09:48] VITALS: O2SAT 100
--- NOTE | 2021-07-01 09:58 | HMH.SCOPE ---
- Procedure: Date: 07/01/21 Patient Date of :: 1965 Procedure Performed:: EGD Indications:: Abdominal pain Performing Provider:: Karis Hood MD Referring Provider:: Lane Manzano Sedation:: Propofol Procedure:: EGD The gastroscope was gently passed through the incisoral orifice into the oral cavity and under direct visualization the esophagus was intubated. The endoscope was passed down the esophagus, through the stomach, and into the duodenum. Color, texture, mucosa, and anatomy of the esophagus, stomach, and duodenum were carefully examined with the scope. Findings:: Oropharynx: normal Esophagus: normal EG Junction: intact at 40 cm Cardia: normal Fundus: normal Body: normal Antrum: normal Duodenal bulb: normal Duodenum (second and third portion): normal Random biopsies obtained for evaluation of h.pylori infection Overall normal EGD exam No evidence of hiatus hernia or ulcer disease Specimens:: Gastric Recommendations:: Consider gastric emptying study Complications:: None Estimated blood obtained (mL): 0
[2021-07-01 10:14] VITALS: BP 118/68; PULSE 73; RESP 18; TEMP 36.4; O2SAT 94
[2021-07-01 10:24] VITALS: BP 121/77; PULSE 75; RESP 18; O2SAT 95
[2021-07-01 10:34] VITALS: BP 128/47; PULSE 75; RESP 18; O2SAT 97
[2021-07-01 10:45] VITALS: BP 141/81; PULSE 75; RESP 18; O2SAT 97
== END 2021-07-01 10:49 | disposition home or self-care (01) ==
LOC: OUTP 08:22
PROVIDERS: PCP Nurse Practitioner Family; Visit Provider Internal Medicine Gastroenterology
PROC: 0DJ08ZZ Inspection of Upper Intestinal Tract, Via Natural or Artificial Opening Endoscopic (ICD-10-PCS; CPT 43235; principal; 2021-07-01 09:30)
DX: R10.9 Unspecified abdominal pain (principal); K21.9 Gastro-esophageal reflux disease without esophagitis; I25.10 Atherosclerotic heart disease of native coronary artery without angina pectoris; I10 Essential (primary) hypertension; M19.90 Unspecified osteoarthritis, unspecified site; Z72.0 Tobacco use; Z82.49 Family history of ischemic heart disease and other diseases of the circulatory system; Z88.1 Allergy status to other antibiotic agents; Z88.6 Allergy status to analgesic agent; Z79.82 Long term (current) use of aspirin; Z79.899 Other long term (current) drug therapy
CPT/HCPCS: 43235; 88305

== ENCOUNTER 2021-11-05 15:47 | Emergency (ER) | payer MEDICARE, SELFPAY ==
[2021-11-05 16:05] VITALS: BP 138/95; PULSE 87; RESP 18; TEMP 36.9; O2SAT 97; BMI 28.3
--- NOTE | 2021-11-05 16:18 | HMH.EDUTC ---
[facility] [place] Clinical Impression: Encounter for laboratory testing for COVID-19 virus Disposition: Home, Self-Care Condition on Discharge: Good Instructions: DI for COVID-19 (Suspected or Confirmed ), Preventing the Spread of Coronavirus Discharge Instructions Additional Instructions: *Monitor Temp, Over the counter Motrin or Tylenol as directed/as needed Tylenol every 4 hours and Motrin every 6 hours (as long as your family doctor has told you that you can take it) for fever or pain. and straight to ER if unable to lower temp less than 101.0 after medication given Follow up IMMEDIATELY for new or worsening symptoms or no Noticeable improvement over the next 48-72 hours. 911 for difficulty breathing or swallowing You were tested for today for Upper Respiratory Panel with COVID19 your test result should be back in the next 24-48 hours, you results should be available on the [facility] My Health Portal Make sure to take your Vitamins Vit. C Vit D and Zinc if you can take them Referrals: Camila Pat APRN [Primary Care Provider] - As needed Time of Disposition: 16:19 Medical Decision Making - Justice Inquiry Pt receiving controlled substance: No Justice was queried for this patient: No Vital Signs: 11/05/21 16:05 Temperature 98.4 F Temperature Source Oral Pulse Rate [Right Brachial] 87 Respiratory Rate 18 Blood Pressure [Right Arm] 138/95 H Blood Pressure Mean [Right Arm] 109 Blood Pressure Source [Right Arm] Automatic Cuff Blood Pressure Position [Right Arm] Sitting 02 Sat by Pulse Oximetry 97 Oxygen Delivery Method Room Air Orders (Tests/Meds): ORDERS Category Date Time Status Covid-19 Nasal PCR ([facility]) Routine Lab 11/05/21 16:06 Received [facility] [place] HPI - General Stated complaint: Covid Test Time Seen by Provider: 11/05/21 16:18 Mode of Arrival: Ambulatory Source of Information: Patient Limitations: No Limitations Description of Symptoms (Recalled from Triage Doc. by RN): PATIENT REQUESTING COVID TEST D/T EXPOSURE. DENIES SYMPTOMS HEENT Symptoms (Recalled from RN notes): No Resp Symptoms (Recalled from RN notes): No Skin Symptoms (Recalled from RN notes): No MS Symptoms (Recalled from RN notes): No Functional Status (Recalled from RN notes): WNL - History of Present Illness Provider Complaint: Patient states that she was around her daughter that recently tested positive for COVID statse that she is not having any symptoms but wanted to get testted - Related Data Home Medications Medication Instructions Recorded Confirmed pregabalin 75 mg capsule 100 mg PO TID 08/22/17 06/25/21 trazodone 300 mg tablet 300 mg PO QHS 08/22/17 06/25/21 vitamin [id number] B1 1,000 1 ml IM MONTHLY 08/22/17 06/25/21 mcg-100 mg/mL injection solution Fluticasone Furoate [Flonase 1 spray NS DAILY 09/18/17 06/25/21 Sensimist] Tiotropium Br/Olodaterol HCl 4 gm IH NEEDED PRN 09/18/17 06/25/21 [Stiolto Respimat Inhal [place]] cyclobenzaprine 10 mg tablet 10 mg PO HS 02/04/21 06/25/21 Aspirin [Low Dose Aspirin EC] 81 mg PO DAILY 02/23/21 06/25/21 Atorvastatin Calcium [Lipitor 20mg 20 mg PO DAILY 02/23/21 06/25/21 Tab] Buspirone HCl [Buspar 10mg 10 mg PO BID 06/25/21 06/25/21 tablet] Metoprolol Succinate [Metoprolol See Rx Instructions .ROUTE .COMPLEX 06/25/21 06/25/21 Succinate 25mg Tablet*] Previous Rx's Medication Instructions Recorded nitroglycerin 0.4 mg sublingual 0.4 mg SUBLINGUAL Q5M PRN #20 tab 04/28/21 tablet omeprazole 40 mg capsule,delayed See Rx Instructions .ROUTE 07/26/21 release .COMPLEX #30 capsule Allergies Allergy/AdvReac Type Severity Reaction Status Date / Time gabapentin [From Neurontin] Allergy Mild Flushing Verified 04/28/21 08:36 doxycycline AdvReac Mild Nausea Verified 06/25/21 09:03 - Worker's Comp Is this a Worker's Comp case?: No [facility] History - Hepatitis A Screen Attestation statement:: This patient has been screened for Hepatitis A risk fa
[2021-11-05 16:22] VITALS: BP 138/95; PULSE 87; RESP 18; TEMP 36.9; O2SAT 97
== END 2021-11-05 16:23 | disposition home or self-care (01) ==
PROVIDERS: Emergency Provider Nurse Practitioner; PCP Nurse Practitioner Family
DX: Z20.822 Contact with and (suspected) exposure to COVID-19 (principal)
CPT/HCPCS: 99212; C9803; G0463; U0003; U0005

== ENCOUNTER → 2022-05-06 07:25 | Outpatient (CLI) | payer MEDICARE, SELFPAY ==
[2022-05-06 08:00] LABS: Anion Gap 14.2 mEq/L (5-15); Blood Urea Nitrogen 14 mg/dl (7-17); Calcium 9.4 mg/dl (8.4-10.2); Carbon Dioxide 34 mmol/L (22.0-30.0); Chloride 99 mmol/L (98-107); Estimated Glomerular Filt Rate 64 ml/min (>60); GFR (African American) 78 ML/MIN (>60); Glucose 110 mg/dl (74-100); Potassium 3.2 mmoL/L (3.5-5.1); Sodium 144 mmol/L (136-145)
--- NOTE | 2022-05-06 08:59 | MR_ITS ---
FINAL REPORT CLINICAL HISTORY: LUMBAR RADICULAR PAIN FINDINGS: Multiplanar MR imaging of the lumbar spine was performed without and with contrast. On the sagittal T2-weighted images, disc degeneration is seen at multiple levels. The vertebral alignment is normal. There is no evidence of fracture. There is a small cyst in the mid sacral spinal canal. The conus is seen at approximately the L1 level and has an unremarkable appearance. T11-12: An annular bulge is present. No significant canal stenosis or neuroforaminal narrowing is seen. T12-L1: An annular bulge is present. No significant canal stenosis or neuroforaminal narrowing is seen. L1-2: An annular bulge and vertebral osteophytes are present.No significant canal stenosis or neuroforaminal narrowing is seen. L2-3: An annular bulge is present. There is a small central disc protrusion. No significant canal stenosis or neuroforaminal narrowing is seen. L3-4: An annular bulge is present. No significant canal stenosis or neuroforaminal narrowing is seen. L4-5: An annular bulge is present. No significant canal stenosis. There is mild bilateral neural foraminal narrowing. No significant canal stenosis or neuroforaminal narrowing is seen. L5-S1: There is an annular disc bulge with facet arthropathy. No significant canal stenosis. There is mild right and moderate left neural foraminal narrowing. No abnormal contrast enhancement is identified. IMPRESSION: Multilevel mild degenerative disc disease and spondylosis with areas of neural foraminal narrowing as described. Small central disc protrusion at L2-3. Small cyst in the mid sacral spinal canal. Reviewed, Interpreted and Dictated by Zeb Griffin III, MD Transcribed by Maxine العراقي Authenticated and [facility]
== END ==
PROVIDERS: PCP Nurse Practitioner Family; Visit Provider Nurse Practitioner Family
DX: Z01.812 Encounter for preprocedural laboratory examination (principal); M54.16 Radiculopathy, lumbar region
CPT/HCPCS: 36415; 72158; 76376; 80048; A9576

== ENCOUNTER → 2022-08-17 13:30 | Outpatient (CLI) | payer MEDICARE, SELFPAY ==
--- NOTE | 2022-08-17 13:35 | XR_ITS ---
FINAL REPORT CLINICAL HISTORY: RT HIP PAIN FINDINGS: Right hip Two views were obtained. There is no acute fracture or dislocation. The joint spaces appear normal. There is mild vascular calcification. IMPRESSION: No acute process. Reviewed, Interpreted and Dictated by Zeb Griffin III, MD Transcribed by Lauren Ortega Authenticated and . [facility]
--- NOTE | 2022-08-17 13:35 | XR_ITS ---
FINAL REPORT CLINICAL HISTORY: LT HIP PAIN FINDINGS: Left hip Three views were obtained. There is no acute fracture or dislocation. The joint spaces appear normal. No soft tissue abnormality is identified. IMPRESSION: No acute process. Reviewed, Interpreted and Dictated by Zeb Griffin III, MD Transcribed by Lauren Ortega Authenticated and [facility]
== END ==
LOC: RAD 13:31
PROVIDERS: PCP Nurse Practitioner Family; Visit Provider Nurse Practitioner Family
DX: M25.551 Pain in right hip (principal); M25.552 Pain in left hip
CPT/HCPCS: 73502

== ENCOUNTER → 2022-09-07 12:40 | Outpatient (CLI) | payer MEDICARE, SELFPAY ==
--- NOTE | 2022-09-07 12:43 | MM_ITS ---
PROCEDURE INFORMATION: Exam: MG Bilateral Screening 3D Mammography Exam date and time: 09/07/2022 12:55 PM Age: 57 years old Clinical indication: Screening. No family history of breast cancer. TECHNIQUE: Imaging protocol: Bilateral Screening tomosynthesis and 2D mammography including computer-aided detection (CAD) when performed. COMPARISON: 1. MG MM DIG MAMM DX UNILAT RT CAD 10/14/2020 2:49 PM 2. MG MM DIG SCREENING MAMM BI W/CAD 09/23/2020 8:56 AM 3. MG DMDB DIG MAMM-DX SELMA W/CAD 12/16/2016 10:41 AM 4. MG DMSB DIG MAMM-SCREEN SELMA 07/08/2014 9:55 AM FINDINGS: MAMMOGRAPHY: Breast composition: There are scattered areas of fibroglandular density. Mass: No suspicious mass. Architectural distortion: None. Calcifications: No suspicious calcifications. Asymmetric density: None. Skin thickening: None. Axillary adenopathy: None. IMPRESSION: No mammographic evidence of malignancy. Annual screening is recommended unless otherwise clinically indicated. ASSESSMENT: BI-RADS Category 1: Negative
--- NOTE | 2022-09-07 12:44 | CT_ITS ---
FINAL REPORT CLINICAL HISTORY: 0 chest complaints, smoker x 30+ yrs, 1 ppd. Hx squamous cell cancer. COMPARISON: 10/22/2020 FINDINGS: Low-Dose Chest CT Axial images were obtained from the lung apex to the mid abdomen by computed tomography. Low-dose protocol was utilized. CTDI vol (mGy): 2.90 DLP (mGy-cm): 103.68 There are stable mildly prominent mediastinal lymph nodes. There is no axillary adenopathy. There is no hilar adenopathy. The heart is proper size. Physiologic pericardial fluid is stable There is no pleural effusion. Lung window images demonstrate a stable 6 mm left upper lobe pulmonary nodule on image 28. There is also a stable 4 mm nodule in the right upper lobe on image 28. The lungs are otherwise clear without nodule or mass. There has been no significant interval change in interlobular septal thickening with a subpleural and basilar predominance. There is some subpleural ground-glass opacity which is also stable. Limited images of the upper abdomen are unremarkable. IMPRESSION: Stable interstitial lung disease. Lung RADS category 2. Recommend 12 month follow-up low-dose chest CT. Reviewed, Interpreted and Dictated by Ellie Flores MD Transcribed by Dolores Cash Authenticated and [facility]
== END ==
PROVIDERS: PCP Nurse Practitioner Family; Visit Provider Nurse Practitioner Family
DX: Z12.31 Encounter for screening mammogram for malignant neoplasm of breast (principal); Z87.891 Personal history of nicotine dependence; Z12.2 Encounter for screening for malignant neoplasm of respiratory organs
CPT/HCPCS: 71271; 77063; 77067

== ENCOUNTER 2022-09-13 13:38 | Day surgery (SDC) | payer MEDICARE, SELFPAY ==
[2022-09-13] VITALS (11 sets, daily range): BP systolic 125–159; BP diastolic 64–102; PULSE 67–80; RESP 16–20; O2SAT 90–98; BMI 30.4
[2022-09-13 13:27] LABS: Basophils # 0.1 K/mm3 (0-0.2); Basophils % 1.3 % (0.1-2.0); Eosinophils # 0.2 K/mm3 (0.0-0.4); Hematocrit 44.8 % (37.0-47.0); Hemoglobin 14.8 g/dL (12.2-16.2); Lymphocytes # 2.1 K/mm3 (0.7-4.5); Mean Corpuscular Hemoglobin 34.2 pg (27.0-31.2); Mean Corpuscular Volume 103.6 fl (81-99); Mean Platelet Volume 7.8 fl (7.4-10.4); Monocytes # 0.3 K/mm3 (0.1-1.0); Neutrophils # 3.1 K/mm3 (1.8-7.8); Neutrophils % 53.7 % (37.0-80.0); Platelet Count 265 K/mm3 (142-424); Red Blood Count 4.32 M/mm3 (4.20-5.40); Red Cell Distribution Width 13.4 % (11.5-17.5); White Blood Count 5.8 K/mm3 (4.8-10.8)
[2022-09-13 13:34] LABS: Chloride 101 mmol/L (98-107); Potassium 3.5 mmoL/L (3.5-5.1); Sodium 141 mmol/L (136-145)
[2022-09-13 13:37] LABS: Anion Gap 12.5 mEq/L (5-15); Blood Urea Nitrogen 7 mg/dl (7-17); Carbon Dioxide 31 mmol/L (22.0-30.0); Creatinine Clearance Estimated 113 mL/min (50-200); Estimated Glomerular Filt Rate 102 ml/min (>60); GFR (African American) 124 ML/MIN (>60)
[2022-09-13 13:38] LABS: Calcium 9.3 mg/dl (8.4-10.2); Glucose 93 mg/dl (74-100)
--- NOTE | 2022-09-13 15:25 | P.CONPHA_ITS ---
PHA [facility]enter Discharge Med Natural Resource Officer: Beverly Styles has received discharge medication counseling on the following medications: ASPIRIN 81 MG DAILY ATORVASTATIN 20 MG HS BISOPROLOL 10 MG DAILY PLAVIX 75 MG DAILY RAMIPRIL 5 MG DAILY MD STOPPING METOPROLOL AT THIS TIME.
== END 2022-09-13 16:51 | disposition home or self-care (01) ==
PROVIDERS: Visit Provider Internal Medicine
DX: R07.9 Chest pain, unspecified (principal); I25.110 Atherosclerotic heart disease of native coronary artery with unstable angina pectoris; Z79.899 Other long term (current) drug therapy; F17.210 Nicotine dependence, cigarettes, uncomplicated; R94.31 Abnormal electrocardiogram [ECG] [EKG]; R06.00 Dyspnea, unspecified; E78.5 Hyperlipidemia, unspecified; J44.9 Chronic obstructive pulmonary disease, unspecified; I11.9 Hypertensive heart disease without heart failure
CPT/HCPCS: 80048; 85025; 85347; 92928; 92978; 93458; 93571; 99152; 99153; C1725; C1769; C1874; C9600; J0153; J1644; J2405; Q9967

== ENCOUNTER → 2023-03-16 10:19 | Outpatient (CLI) | payer MEDICARE, SELFPAY ==
[2023-03-16 10:35] LABS: Adenovirus F 40/41, stool Not Detected (NotDetected); Astrovirus Not Detected (NotDetected); Campylobacter Not Detected (NotDetected); Clostridium Difficile A/B, PCR Not Detected (NotDetected); Cryptosporidium Not Detected (NotDetected); Cyclospora Cayetanesis Not Detected (NotDetected); Entamoeba histolytica Not Detected (NotDetected); Enteroaggregative E coli Not Detected (NotDetected); Enteropathogenic E coli Not Detected (NotDetected); Enterotoxigenic E coli Not Detected (NotDetected); Giardia lamblia Not Detected (NotDetected); Norovirus Not Detected (NotDetected); Plesimonas Shigalloides, PCR Not Detected (NotDetected); Rotavirus A Not Detected (NotDetected); Salmonella, PCR Not Detected (NotDetected); Sapovirus Not Detected (NotDetected); Shiga-like toxin E coli Not Detected (NotDetected); Shigella Enterovasive E coli Not Detected (NotDetected); Vibrio Cholerae Not Detected (NotDetected); Vibrio, PCR Not Detected (NotDetected); Yersinia Entercolitica, PCR Not Detected (NotDetected)
== END ==
PROVIDERS: PCP Nurse Practitioner Family; Visit Provider Nurse Practitioner Family
DX: R19.7 Diarrhea, unspecified (principal)
CPT/HCPCS: 87506

== ENCOUNTER → 2023-05-22 09:58 | Outpatient (CLI) | payer MEDICARE, SELFPAY | PROVIDERS: PCP Nurse Practitioner Family; Visit Provider Internal Medicine Pulmonary Disease | DX: R06.09 Other forms of dyspnea (principal) | CPT/HCPCS: 94060; 94618; 94726; 94729 ==

== ENCOUNTER → 2023-05-25 08:01 | Outpatient (CLI) | payer MEDICARE, SELFPAY ==
--- NOTE | 2023-05-25 08:04 | CA_ITS ---
FINAL REPORT TECHNIQUE: Grayscale, color Doppler and duplex Doppler ultrasound of the kidneys, aorta and renal arteries was performed. Multiple velocities were measured. CLINICAL HISTORY: HTN, Smoker COMPARISON: None FINDINGS: Aorta velocity: 95 cm/sec Right kidney: 10.8 cm. No evidence of hydronephrosis or mass. Right intrarenal RI: 0.67-0.70 Right renal artery velocity: 154 cm/sec. Right RAR (Renal artery-Aortic Ratio): 1.62 Left Kidney: 10.2 cm. No evidence of hydronephrosis or mass. Left intrarenal RI: 0.65-0.69 Left renal artery velocity: 243 cm/sec. Left RAR (Renal Artery-Aortic Ratio): 2.55 IMPRESSION: Greater than 60% stenosis on the left. Less than 50% stenosis on the right. CT angiogram or postcontrast MR angiogram would be more sensitive for evaluation of possible renal artery stenosis. Reviewed, Interpreted and Dictated by Mohsen Rojas MD Transcribed by Garima Alcantar Authenticated and [facility]
== END ==
PROVIDERS: PCP Nurse Practitioner Family; Visit Provider Physician Assistant
DX: I25.118 Atherosclerotic heart disease of native coronary artery with other forms of angina pectoris (principal); R06.09 Other forms of dyspnea; E78.5 Hyperlipidemia, unspecified; Z87.891 Personal history of nicotine dependence; I10 Essential (primary) hypertension
CPT/HCPCS: 93976

== ENCOUNTER 2023-05-29 07:51 | Day surgery (SDC) | payer MEDICARE, SELFPAY ==
[2023-05-29] VITALS (12 sets, daily range): BP systolic 122–168; BP diastolic 79–94; PULSE 60–80; RESP 15–22; O2SAT 90–100; BMI 22.2
--- NOTE | 2023-05-29 07:15 | IR_ITS ---
APPROVED REPORT Patient Location: Outpatient Associate Professor Plant Pathology: VALERIA Ramirez RT (R) PROCEDURES Left heart catheterization Left ventriculogram Selective coronary angiogram Drug-eluting stent deployment to the second obtuse marginal artery Intravascular ultrasound to the proximal LAD Drug-eluting stent deployment to the distal right coronary Bilateral selective renal angiography INDICATION Accelerated angina pectoris, Coronary artery disease, Angiographic ambiguity in the proximal LAD preceding a stent, Abnormal renal duplex suggesting left renal artery stenosis, Renovascular hypertension Informed consent was obtained prior to the procedure. COMPLICATIONS None Estimated Blood Loss: Less than 10 mls TECHNIQUE One percent lidocaine used to anesthetize the right anterior aspect of the wrist. The right radial artery was accessed via the Seldinger technique. A 6 Kyrgyz sheath was placed in the right radial artery. 2.5 mg of Verapamil, 800 mcg of nitroglycerin, 1mg Lidocaine and 5000 U Heparin were given through the arterial sheath. The papa catheter was also used to perform left heart catheterization, left ventriculogram and selective coronary angiogram. At the end the diagnostic angiogram therapeutic Was administered giving a therapeutic ACT and the guide catheter was placed in the left main artery followed by wire down the circumflex artery. A 3.5 x 18 mm [place] frontier stent was deployed in the second obtuse marginal artery at 16 oanh reducing the stenosis to 0%. BURTON-3 flow was present before and after the procedure. Following this the guide catheter was left in the left main artery and the wire was placed down the LAD. There was haziness preceding the proximal LAD stent. Intravascular ultrasound probe was advanced which demonstrated excellent expansion of the stent and no stenosis proximal to the stent. Following this the guide catheter was placed in the right coronary artery followed by the ANGIOGRAPHIC RESULTS The left main artery Normal The left anterior descending artery Had a hazy stenosis proximal to the stent which proved to be no stenosis at all with wide patency. The proximal LAD stent was widely patent with excellent proximal distal transitioning. There are diffuse 10% luminal irregularities. The circumflex artery Is a nondominant yet still large vessel with a proximal eccentric 30% stenosis. A large second obtuse marginal artery has proximal eccentric 70% stenosis The right coronary artery Is a dominant vessel and has proximal tandem eccentric 30% stenosis with mid vessel 40% stenosis and a distal mostly eccentric 70% stenosis The MALIN ventriculogram reveals Normal at 65% The left ventricular end-diastolic pressure 15 mmHg Left renal artery singular and has an ostial smooth 20 to 30% stenosis with no hemodynamic gradient upon pullback with a 6 [place] Poppa catheter Right renal artery singular normal IMPRESSION Coronary disease as described above Successful stenting of the second obtuse marginal artery severe disease reduced to 0% with 1 drug-eluting stent Successful stenting of the distal dominant right coronary severe disease reduced to 0% with 1 drug-eluting stent Successful intravascular ultrasound the proximal LAD which demonstrated wide patency proximal to the proximal LAD stent with excellent stent apposition and expansion within the LAD Normal ejection fraction Normal left ventricular end-diastolic pressure Mild left renal artery stenosis Normal right renal artery PLAN 1. Dual antiplatelet therapy 2. Avoidance of tobacco products 3. LDL less than 55 to be achieved with high intensity statin 4. Cardiac rehabilitation 5. Aggressive medical management Electronically signed by : Dre Kendrick MD 05/29/2023 10:49:06
[2023-05-29 08:31] LABS: Basophils % 0.5 % (0.1-2.0); Chloride 99 mmol/L (98-107); Eosinophils # 0.3 K/mm3 (0.0-0.4); Eosinophils % 5.2 % (0.1-12.0); Hematocrit 40.4 % (37.0-47.0); Hemoglobin 13.8 g/dL (12.2-16.2); Lymphocytes # 1.8 K/mm3 (0.7-4.5); Lymphocytes % 33.4 % (10-50); Mean Corpuscular HGB Conc 34.1 g/dL (31.8-35.4); Mean Corpuscular Volume 99.7 fl (81-99); Mean Platelet Volume 7.2 fl (7.4-10.4); Monocytes # 0.2 K/mm3 (0.1-1.0); Monocytes % 3.8 % (1.7-9.3); Neutrophils # 3.1 K/mm3 (1.8-7.8); Neutrophils % 57.1 % (37.0-80.0); Platelet Count 189 K/mm3 (142-424); Red Blood Count 4.06 M/mm3 (4.20-5.40); Red Cell Distribution Width 13.4 % (11.5-17.5); Sodium 143 mmol/L (136-145); White Blood Count 5.4 K/mm3 (4.8-10.8)
[2023-05-29 08:34] LABS: Blood Urea Nitrogen 10 mg/dl (7-17); Carbon Dioxide 37 mmol/L (22.0-30.0); Creatinine Clearance Estimated 87 mL/min (50-200); Estimated Glomerular Filt Rate 85 ml/min (>60); GFR (African American) 103 ML/MIN (>60)
[2023-05-29 08:35] LABS: Anion Gap 9.8 mEq/L (5-15); Calcium 8.7 mg/dl (8.4-10.2); Glucose 98 mg/dl (74-100)
[2023-05-29 08:36] LABS: Potassium 2.8 mmoL/L (3.5-5.1)
== END 2023-05-29 14:19 | disposition home or self-care (01) ==
PROVIDERS: PCP Nurse Practitioner Family; Visit Provider Internal Medicine
DX: E78.5 Hyperlipidemia, unspecified (principal); I10 Essential (primary) hypertension; I25.118 Atherosclerotic heart disease of native coronary artery with other forms of angina pectoris; R06.09 Other forms of dyspnea; I70.1 Atherosclerosis of renal artery; I15.0 Renovascular hypertension; I77.1 Stricture of artery; Z79.899 Other long term (current) drug therapy
CPT/HCPCS: 36252; 80048; 85025; 92928; 92978; 93458; 99152; 99153; C1725; C1760; C1769; C1876; C9600; J1644; Q9967

== ENCOUNTER 2023-06-14 10:33 | Outpatient (CLI) | payer MEDICARE, SELFPAY ==
[2023-06-14 11:34] LABS: Basophils % 0.6 % (0.1-2.0); Eosinophils # 0.3 K/mm3 (0.0-0.4); Eosinophils % 4.4 % (0.1-12.0); Hematocrit 41.5 % (37.0-47.0); Hemoglobin 13.9 g/dL (12.2-16.2); Lymphocytes # 1.7 K/mm3 (0.7-4.5); Lymphocytes % 25.9 % (10-50); Mean Corpuscular HGB Conc 33.5 g/dL (31.8-35.4); Mean Corpuscular Hemoglobin 34.4 pg (27.0-31.2); Mean Corpuscular Volume 102.8 fl (81-99); Mean Platelet Volume 8.1 fl (7.4-10.4); Monocytes # 0.3 K/mm3 (0.1-1.0); Monocytes % 4.4 % (1.7-9.3); Neutrophils # 4.2 K/mm3 (1.8-7.8); Neutrophils % 64.7 % (37.0-80.0); Platelet Count 267 K/mm3 (142-424); Red Blood Count 4.03 M/mm3 (4.20-5.40); Red Cell Distribution Width 13.6 % (11.5-17.5); White Blood Count 6.4 K/mm3 (4.8-10.8)
[2023-06-14 12:00] LABS: Alanine Aminotransferase 14 U/L (12-78); Albumin Level 4.2 g/dl (3.5-5.0); Alkaline Phosphatase 85 U/L (38-126); Anion Gap 4.5 mEq/L (5-15); Aspartate Amino Transferase 23 U/L (14-36); Bilirubin,Direct 0.1 mg/dl (0.0-0.4); Bilirubin,Indirect 0.3 mg/dL (0.0-0.9); Bilirubin,Total 0.4 mg/dl (0.2-1.3); Bilirubin,Unconjugated 0.3 mg/dL (0.0-1.1); Blood Urea Nitrogen 8 mg/dl (7-17); Calcium 8.6 mg/dl (8.4-10.2); Carbon Dioxide 37 mmol/L (22.0-30.0); Chloride 100 mmol/L (98-107); Chol/HDL Ratio 4.1 (1-3.5); Cholesterol 197 mg/dl (140-200); Estimated Glomerular Filt Rate 73 ml/min (>60); GFR (African American) 89 ML/MIN (>60); Glucose 73 mg/dl (74-100); HDL Cholesterol 48 mg/dl (40-60); Magnesium 1.9 mg/dl (1.6-2.3); Potassium 3.5 mmoL/L (3.5-5.1); Sodium 138 mmol/L (136-145); Total Protein,Serum 7.2 g/dl (6.3-8.2); Triglycerides 169 mg/dl (30-150); VLDL Cholesterol 34 mg/dL (0-40)
[2023-06-14 12:10] LABS: Direct LDL Cholesterol 110.11 mg/dL (100-129)
[2023-06-14 12:14] LABS: Free T4 (Free Thyroxine) 1.17 ng/dl (0.78-2.19)
[2023-06-14 12:30] LABS: Thyroid Stimulating Hormone 1.25 uIU/mL (0.465-4.68)
== END 2023-06-14 23:59 ==
LOC: LAB 10:35
PROVIDERS: PCP Nurse Practitioner Family; Visit Provider Physician Assistant
DX: E78.5 Hyperlipidemia, unspecified (principal); I11.9 Hypertensive heart disease without heart failure; I25.118 Atherosclerotic heart disease of native coronary artery with other forms of angina pectoris; R06.09 Other forms of dyspnea; R19.7 Diarrhea, unspecified; Z87.891 Personal history of nicotine dependence
CPT/HCPCS: 36415; 80048; 80061; 80076; 83735; 84439; 84443; 85025

== ENCOUNTER 2023-06-14 10:49 | Outpatient (RCR) | payer MEDICARE, SELFPAY | END 2023-07-24 11:00 | disposition home or self-care (01) | LOC: PT 10:49 | PROVIDERS: Visit Provider Internal Medicine | DX: I25.10 Atherosclerotic heart disease of native coronary artery without angina pectoris (principal); Z95.5 Presence of coronary angioplasty implant and graft | CPT/HCPCS: 93798 ==

== ENCOUNTER 2023-07-04 09:54 | Outpatient (CLI) | payer MEDICARE, SELFPAY ==
--- NOTE | 2023-07-04 09:54 | NM_ITS ---
FINAL REPORT CLINICAL HISTORY: Hypoxia 10:10AM 36.4 MCI TC DTPA 10:40AM 8.71 MCI TC MAA FINDINGS: NUCLEAR MEDICINE VENTILATION AND PERFUSION IMAGING TECHNIQUE: V/Q scan is performed utilizing 36.4 technetium 99 M DTPA aerosol and IV administration of 8.71 technetium 99 M MAA. Images were obtained in AP, PA, lateral, and oblique projections. FINDINGS There is no evidence of segmental or subsegmental mismatch perfusion defects. There is deposition of pharmaceutical in the central airways. IMPRESSION: Low probability for pulmonary embolus. Reviewed, Interpreted and Dictated by Mohsen Rojas MD Transcribed by Elton Magallanes Authenticated and . [facility]
[2023-07-04] MEDS: ISOTOPE TC MAA;1 DOE (UP TO 45 MCI) 1 DOSE IV (10:44)
[2023-07-04] MEDS: SODIUM CHLORIDE 0.9% 10ML SYR (RAD ONLY) 10 ML IV (10:44)
[2023-07-04] MEDS: ISOTOPE DTPA(AEROSOL);1 DOSE (UP TO 75 MCI) IV (10:44)
== END 2023-07-04 23:59 ==
LOC: RAD 09:54
PROVIDERS: PCP Nurse Practitioner Family; Visit Provider Internal Medicine Pulmonary Disease
DX: R06.09 Other forms of dyspnea (principal)
CPT/HCPCS: 78582; A9540; A9567

== ENCOUNTER 2023-10-17 08:35 | Day surgery (SDC) | payer MEDICARE, SELFPAY ==
[2023-10-17] VITALS (12 sets, daily range): BP systolic 113–137; BP diastolic 71–95; PULSE 62–74; RESP 18; TEMP 36.6–36.7; O2SAT 95; BMI 21.6
--- NOTE | 2023-10-17 07:28 | IR_ITS ---
APPROVED REPORT Patient Location: Outpatient Tool Grinder Operator: VALERIA Ramirez RT (R) PROCEDURES Selective coronary angiogram Drug-eluting stent deployment to the proximal and mid dominant right coronary artery INDICATION Coronary artery disease, Worsening angina pectoris Informed consent was obtained prior to the procedure. COMPLICATIONS NONE Estimated Blood Loss: LESS THAN 10 ML TECHNIQUE One percent lidocaine used to anesthetize the right anterior aspect of the wrist. The right radial artery was accessed via the Seldinger technique. A 6 Wol[place] sheath was placed in the right radial artery. 2.5 mg of Verapamil, 800 mcg of nitroglycerin, 1mg Lidocaine and 5000 U Heparin were given through the arterial sheath. The papa catheter was also used to perform selective coronary angiogram. At the end of the diagnostic angiogram therapeutic heparin was administered giving a therapeutic ACT and the guide catheter was placed in the right coronary artery followed by Choice PT extra-support wire placed distally. A 3 mm x 38 mm Prad[place] frontier stent was deployed at 24 oanh reducing the stenosis. A 3.5 x 12 mm noncompliant balloon was then deployed at 24 oanh to further post dilate the entire stent. 800 mcg of intracoronary glycerin was administered after the procedure. At the end of procedure the apparatus was removed the sheath was removed and hemostasis was achieved using TR banding patient was transferred to postop holding in stable condition. BURTON-3 flow was present before and after the procedure ANGIOGRAPHIC RESULTS The left main artery Normal The left anterior descending artery Has a proximal 30 to 40% stenosis immediately proximal to a widely patent stent which has excellent distal transitioning with remaining LAD being widely patent. The circumflex artery Nondominant and has proximal 10 to 20% stenosis with a mid vessel stent which is widely patent free of in-stent restenosis with excellent proximal distal transitioning The right coronary artery Is a dominant vessel with tandem eccentric 40% stenosis in the mid vessel 70% stenosis followed by distal stent which is widely patent free of in-stent restenosis with excellent proximal distal transitioning The MALIN ventriculogram reveals Was not performed The left ventricular end-diastolic pressure Was not measured IMPRESSION Moderate disease in the proximal LAD immediately proximal to a widely patent stent Patent mid circumflex artery stent Moderate and severe tandem stenoses in the proximal and mid dominant right coronary artery with successful stenting reducing lesion to less than 10% with 1 drug-eluting stent PLAN 1. Dual antiplatelet therapy 2. Cardiac rehabilitation 3. LDL less than 55 to be achieved with high intensity statin 4. Avoidance of tobacco products 5. Risk factor modification Electronically signed by : Dre Kendrick MD 10/17/2023 10:35:14
[2023-10-17 09:10] LABS: Basophils # 0.1 K/mm3 (0-0.2); Basophils % 1.6 % (0.1-2.0); Chloride 101 mmol/L (98-107); Eosinophils # 0.9 K/mm3 (0.0-0.4); Eosinophils % 17.2 % (0.1-12.0); Hematocrit 43.6 % (37.0-47.0); Lymphocytes # 1.4 K/mm3 (0.7-4.5); Lymphocytes % 26.4 % (10-50); Mean Corpuscular HGB Conc 32.1 g/dL (31.8-35.4); Mean Corpuscular Hemoglobin 33.6 pg (27.0-31.2); Mean Corpuscular Volume 104.4 fl (81-99); Mean Platelet Volume 7.7 fl (7.4-10.4); Monocytes # 0.2 K/mm3 (0.1-1.0); Monocytes % 3.5 % (1.7-9.3); Neutrophils # 2.7 K/mm3 (1.8-7.8); Neutrophils % 51.3 % (37.0-80.0); Platelet Count 285 K/mm3 (142-424); Red Blood Count 4.18 M/mm3 (4.20-5.40); Red Cell Distribution Width 14.5 % (11.5-17.5); Sodium 143 mmol/L (136-145); White Blood Count 5.3 K/mm3 (4.8-10.8)
[2023-10-17 09:13] LABS: Blood Urea Nitrogen 9 mg/dl (7-17); Carbon Dioxide 36 mmol/L (22.0-30.0); Creatinine Clearance Estimated 84 mL/min (50-200); Estimated Glomerular Filt Rate 85 ml/min (>60); GFR (African American) 103 ML/MIN (>60)
[2023-10-17 09:14] LABS: Calcium 9.3 mg/dl (8.4-10.2); Glucose 118 mg/dl (74-100)
[2023-10-17 09:18] LABS: Anion Gap 8.9 mEq/L (5-15)
[2023-10-17 09:19] LABS: Potassium 2.9 mmoL/L (3.5-5.1)
[2023-10-17] MEDS: LIDOCAINE 1% 10ML MDV 20 ML IJ (09:34)
[2023-10-17] MEDS: HEPARIN 1,000 UNITS/500ML NS (CATH LAB) 3000 UNIT IV (09:34)
[2023-10-17] MEDS: 0.9 % SODIUM CHLORIDE 500 ML 25 ML IV (09:34)
[2023-10-17] MEDS: NITROGLYCERIN 800MCG/8ML SYR (CATH LAB) 800 MCG IA ×2 (09:35→10:12)
[2023-10-17] MEDS: HEPARIN 1,000 UNITS/ML 10ML VIAL (CATH LAB) 10000 UNIT IV (09:35)
[2023-10-17] MEDS: diphenhydrAMINE 50MG/ML VIAL 50 MG IV (09:35)
[2023-10-17] MEDS: VERAPAMIL 2.5MG/ML 2ML VIAL 2.5 MG IV (09:35)
[2023-10-17] MEDS: FENTANYL 100MCG/2ML VIAL 50 MCG IV ×2 (09:54→10:16)
[2023-10-17] MEDS: MIDAZOLAM HCL 1MG/1ML 5ML VIAL 1 MG IV (09:54)
[2023-10-17] MEDS: MIDAZOLAM 2MG/2ML VIAL 1 MG IV (10:11)
[2023-10-17] MEDS: POTASSIUM CHLORIDE 20MEQ TAB 40 MEQ PO (13:00)
[2023-10-17] MEDS: IOPAMIDOL-370 (76%);100ML BOTTLE 85 ML IV (14:14)
[2023-10-17 14:50] LABS: CATHL Activated Clotting Time 299 SEC (74-125)
== END 2023-10-17 13:50 | disposition home or self-care (01) ==
PROVIDERS: PCP Nurse Practitioner Family; Visit Provider Internal Medicine
DX: I25.118 Atherosclerotic heart disease of native coronary artery with other forms of angina pectoris (principal); R07.89 Other chest pain; R06.09 Other forms of dyspnea; I10 Essential (primary) hypertension; E78.5 Hyperlipidemia, unspecified; F17.210 Nicotine dependence, cigarettes, uncomplicated; Z79.899 Other long term (current) drug therapy
CPT/HCPCS: 80048; 85025; 85347; 92928; 93454; 99152; C1725; C1769; C1874; C9600; J1644; Q9967

== ENCOUNTER 2023-10-23 13:18 | Outpatient (CLI) | payer MEDICARE, SELFPAY ==
[2023-10-23 14:02] LABS: Basophils % 0.9 % (0.1-2.0); Eosinophils # 0.6 K/mm3 (0.0-0.4); Eosinophils % 13.2 % (0.1-12.0); Hematocrit 39.7 % (37.0-47.0); Hemoglobin 12.9 g/dL (12.2-16.2); Lymphocytes # 1.4 K/mm3 (0.7-4.5); Lymphocytes % 30.1 % (10-50); Mean Corpuscular HGB Conc 32.4 g/dL (31.8-35.4); Mean Corpuscular Hemoglobin 33.8 pg (27.0-31.2); Mean Corpuscular Volume 104.5 fl (81-99); Mean Platelet Volume 7.8 fl (7.4-10.4); Monocytes # 0.2 K/mm3 (0.1-1.0); Monocytes % 3.4 % (1.7-9.3); Neutrophils # 2.4 K/mm3 (1.8-7.8); Neutrophils % 52.4 % (37.0-80.0); Platelet Count 257 K/mm3 (142-424); Red Cell Distribution Width 14.8 % (11.5-17.5); White Blood Count 4.6 K/mm3 (4.8-10.8)
[2023-10-23 14:05] LABS: Calcium 9.1 mg/dl (8.4-10.2); Carbon Dioxide 35 mmol/L (22.0-30.0); Glucose 95 mg/dl (74-100); Potassium 3.9 mmoL/L (3.5-5.1); Sodium 143 mmol/L (136-145)
[2023-10-23 14:44] LABS: Anion Gap 10.9 mEq/L (5-15); Blood Urea Nitrogen 5 mg/dl (7-17); Chloride 101 mmol/L (98-107); Estimated Glomerular Filt Rate 102 ml/min (>60); GFR (African American) 123 ML/MIN (>60)
== END 2023-10-23 23:59 | disposition home or self-care (01) ==
LOC: LAB 13:20
PROVIDERS: PCP Nurse Practitioner Family; Visit Provider Internal Medicine
DX: I25.10 Atherosclerotic heart disease of native coronary artery without angina pectoris (principal); Z95.5 Presence of coronary angioplasty implant and graft; F17.210 Nicotine dependence, cigarettes, uncomplicated
CPT/HCPCS: 36415; 80048; 85025

== ENCOUNTER 2024-02-01 11:14 | Outpatient (CLI) | payer MEDICARE, SELFPAY ==
--- NOTE | 2024-02-01 11:23 | XR_ITS ---
FINAL REPORT CLINICAL HISTORY: LEFT ARM PAIN,LEFT WRIST DROP, ACUTE TRAUMATIC PAIN FINDINGS: Left elbow Three views were obtained. There is no acute fracture or dislocation. The joint spaces appear normal. No soft tissue abnormality is identified. IMPRESSION: No acute process. Reviewed, Interpreted and Dictated by Mohsen Rojas MD Transcribed by Lauren Ortega Authenticated and [facility]
--- NOTE | 2024-02-01 11:23 | XR_ITS ---
FINAL REPORT CLINICAL HISTORY: LEFT ARM PAIN,LEFT WRIST DROP, ACUTE TRAUMATIC PAIN FINDINGS: Left wrist Three views were obtained. There is no acute fracture or dislocation. There are minimal hypertrophic changes at the basilar joint. No soft tissue abnormality is identified. IMPRESSION: Minimal degenerative changes. Reviewed, Interpreted and Dictated by Mohsen Rojas MD Transcribed by Lauren Ortega Authenticated and [facility]
--- NOTE | 2024-02-01 11:23 | XR_ITS ---
FINAL REPORT CLINICAL HISTORY: LEFT ARM PAIN,LEFT WRIST DROP, ACUTE TRAUMATIC PAIN FINDINGS: Left forearm Two views were obtained. There is no acute fracture or dislocation. The joint spaces appear normal. No soft tissue abnormality is identified. IMPRESSION: No acute process. Reviewed, Interpreted and Dictated by Mohsen Rojas MD Transcribed by Lauren Ortega Authenticated and [facility]
[2024-02-01 12:14] LABS: Basophils % 0.7 % (0.1-2.0); Eosinophils # 0.1 K/mm3 (0.0-0.4); Hematocrit 38.7 % (37.0-47.0); Hemoglobin 12.4 g/dL (12.2-16.2); Lymphocytes # 1.5 K/mm3 (0.7-4.5); Lymphocytes % 34.3 % (10-50); Mean Corpuscular HGB Conc 31.9 g/dL (31.8-35.4); Mean Corpuscular Hemoglobin 33.8 pg (27.0-31.2); Mean Corpuscular Volume 106.1 fl (81-99); Monocytes # 0.2 K/mm3 (0.1-1.0); Monocytes % 4.4 % (1.7-9.3); Neutrophils # 2.4 K/mm3 (1.8-7.8); Neutrophils % 57.5 % (37.0-80.0); Platelet Count 211 K/mm3 (142-424); Red Blood Count 3.65 M/mm3 (4.20-5.40); Red Cell Distribution Width 15.6 % (11.5-17.5); White Blood Count 4.2 K/mm3 (4.8-10.8)
[2024-02-01 12:33] LABS: Alanine Aminotransferase 28 U/L (12-78); Albumin Level 3.6 g/dl (3.5-5.0); Albumin/Globulin Ratio 1.3 (1.1-1.8); Alkaline Phosphatase 72 U/L (38-126); Anion Gap 6.1 mEq/L (5-15); Aspartate Amino Transferase 34 U/L (14-36); Bilirubin,Total 0.7 mg/dl (0.2-1.3); Blood Urea Nitrogen 7 mg/dl (7-17); Calcium 8.9 mg/dl (8.4-10.2); Carbon Dioxide 33 mmol/L (22.0-30.0); Chloride 107 mmol/L (98-107); Chol/HDL Ratio 2.7 (1-3.5); Cholesterol 135 mg/dl (140-200); Estimated Glomerular Filt Rate 102 ml/min (>60); GFR (African American) 123 ML/MIN (>60); Globulin 2.8 g/dL (1.3-3.2); Glucose 99 mg/dl (74-100); HDL Cholesterol 50 mg/dl (40-60); Potassium 3.1 mmoL/L (3.5-5.1); Sodium 143 mmol/L (136-145); Total Protein,Serum 6.4 g/dl (6.3-8.2); Triglycerides 125 mg/dl (30-150); VLDL Cholesterol 25 mg/dL (0-40)
[2024-02-01 12:44] LABS: Direct LDL Cholesterol 56.57 mg/dL (100-129)
[2024-02-01 12:50] LABS: 25-OH Vitamin D, Total 42.9 ng/mL (30-100)
[2024-02-01 13:04] LABS: Thyroid Stimulating Hormone 1.31 uIU/mL (0.465-4.68)
[2024-02-01 13:23] LABS: Vitamin B12 816 pg/mL (239-931)
== END 2024-02-01 23:59 | disposition home or self-care (01) ==
LOC: RAD 11:16
PROVIDERS: PCP Nurse Practitioner Family; Visit Provider Nurse Practitioner Family
DX: M79.602 Pain in left arm (principal); M21.332 Wrist drop, left wrist; G89.11 Acute pain due to trauma; J96.11 Chronic respiratory failure with hypoxia; I25.10 Atherosclerotic heart disease of native coronary artery without angina pectoris; E53.8 Deficiency of other specified B group vitamins; M85.80 Other specified disorders of bone density and structure, unspecified site; F17.210 Nicotine dependence, cigarettes, uncomplicated
CPT/HCPCS: 36415; 73080; 73090; 73110; 80050; 80053; 80061; 82306; 82607; 84443; 85025

== ENCOUNTER 2024-02-21 14:48 | Outpatient (CLI) | payer MEDICARE, SELFPAY ==
--- NOTE | 2024-02-21 14:52 | CT_ITS ---
FINAL REPORT TECHNIQUE: Axial CT images of the chest were obtained without contrast. Low-dose protocol was utilized. This study was performed with techniques to keep radiation doses as low as reasonably achievable (ALARA). Individualized dose reduction techniques using automated exposure control or adjustment of mA and/or kV according to the patient's size were employed. CLINICAL HISTORY: SCREENING smoker 36 years, 1/2 ppd hx skin cancer family hx of lung cancer COMPARISON: 09/07/2022 FINDINGS: CT CHEST WITHOUT, LOW DOSE SCREENING CT Di Vol: 2.90 mGy DLP: 105.25 mGy*cm There are stable mildly enlarged mediastinal nodes which are favored to be reactive. The heart size is normal. There is no pleural or pericardial effusion. The lung windows show a stable 6 mm left upper lobe nodule best seen on series 3 image 31. There is also a stable 4 mm nodule in the right upper lobe seen on series 3 image 29. Stable mild predominantly peripheral fibrosis is noted. There is no new mass or nodule identified. Mild groundglass opacities are also stable. Limited images of the upper abdomen demonstrate no acute findings. IMPRESSION: Stable interstitial lung disease. LR Category 1: 12 month follow-up low-dose chest CT is recommended per Fleischner criteria. Reviewed, Interpreted and Dictated by Zeb Griffin III, MD Transcribed by Garima Alcantar Authenticated and [facility]
--- NOTE | 2024-02-21 14:52 | MM_ITS ---
PROCEDURE INFORMATION: Exam: MG Bilateral Screening 3D Mammography Exam date and time: 02/21/2024 3:05 PM Age: 59 years old Clinical indication: Screening examination TECHNIQUE: Imaging protocol: Bilateral Screening tomosynthesis and 2D mammography including computer-aided detection (CAD) when performed. COMPARISON: 1. MG MM DIG SCREENING MAMM BI W/CAD 09/07/2022 12:55 PM 2. MG MM DIG MAMM DX UNILAT RT CAD 10/14/2020 2:49 PM FINDINGS: MAMMOGRAPHY: Breast composition: There are scattered areas of fibroglandular density. Mass: No new or suspicious masses Architectural distortion: None. Calcifications: No suspicious calcifications. Asymmetric density: None. Skin thickening: None. Axillary adenopathy: None. IMPRESSION: No mammographic evidence of malignancy. Annual screening is recommended unless otherwise clinically indicated. ASSESSMENT: BI-RADS Category 1: Negative.
--- NOTE | 2024-02-21 14:54 | XR_ITS ---
FINAL REPORT CLINICAL HISTORY: SCREEENING COMPARISON: None FINDINGS: Using L1-4, the bone mineral density of the spine is 1.008 g/cm2, corresponding to T-score of -0.4 which is within normal limits. Using the left hip, the bone mineral density of the femoral neck is 0.677 g/cm2, corresponding to a T-score of -2.2 which is consistent with low bone density. Using the right hip, the bone mineral density of the femoral neck is 0.626 g/cm2, corresponding to a T-score of -2.0 which is consistent with low bone density. FRAX 10 year fracture risk is 1.9% for a hip fracture and 9.7% for a major osteoporotic fracture. NOTE: T-score: Standard deviation compared with peak bone mass of young adult mean. *Following the recommendations of the International Society of Bone densitometry, classification of hip BMD is based on the lower of two T-scores; total hip or femoral neck. IMPRESSION: Diminished bone mineral density consistent with low bone density. Reviewed, Interpreted and Dictated by Zeb Griffin III, MD Transcribed by Garima Alcantar Authenticated and [facility]
== END 2024-02-21 23:59 | disposition home or self-care (01) ==
LOC: RAD 14:49
PROVIDERS: PCP Nurse Practitioner Family; Visit Provider Nurse Practitioner Family
DX: Z12.31 Encounter for screening mammogram for malignant neoplasm of breast (principal); Z87.891 Personal history of nicotine dependence; M81.0 Age-related osteoporosis without current pathological fracture; Z78.0 Asymptomatic menopausal state
CPT/HCPCS: 71271; 77063; 77067; 77080

== ENCOUNTER 2024-04-15 08:14 | Day surgery (SDC) | payer MEDICARE, SELFPAY ==
[2024-04-10 13:55] VITALS: BMI 20.3
[2024-04-15] MEDS: LACTATED RINGERS 1000ML 1,000 ML 100 ML IV (08:34)
[2024-04-15 08:36] VITALS: BP 116/80; PULSE 78; RESP 18; TEMP 36.3; O2SAT 96
--- NOTE | 2024-04-15 09:11 | EXP.ANES.CKL ---
[facility] Disclaimer: The information contained in this section may have been updated after the patient was seen, as this information can be updated by other users. Medical History Diarrhea HTN (hypertension) Multiple lung nodules on CT Dyspnea on exertion Smoking greater than 30 pack years Pulmonary emphysema ILD (interstitial lung disease) Other forms of angina pectoris HLD (hyperlipidemia) Coronary artery disease Tobacco use Family history of coronary artery disease in father Surgical History H/O: hysterectomy History of cholecystectomy History of lumbar surgery History of heart artery stent Family History Other Asthma Heart attack Hypertension Stroke Social History Smoking Status: Former smoker tobacco type: cigarettes packs per day: 1 smoking status stop date: 04/02/23 second hand exposure: No alcohol intake: never substance use type: denies use current occupational status: unemployed Travel in the last 8 weeks: None household members: spouse housing: house current occupational exposures/hazards: No caffeine: Yes [facility] Anesthesia Checklist Patient Identification Patient Identification: Arm Band and Verbal (Name & ) Structural Data Admitted From: Home Planned Operative Procedure/s: EGD/Colonoscopy Consent for Planned Operative Procedure(s) Verified: Yes Verified Documents: Surgical Consent and History and Physical NPO Status Verified Time NPO: 06:00 Chart Verification Results Verified: CBC, BMP, ECG and Chest Xray Additional verifications Patient : No Anesthesia Reactions: No Hx Blood Transfusions: No Blood Transfusion Reaction: No Cardiovascular Assessment Heart Sounds: S1 & S2 Pulse Rhythm: Irregular Peripheral Edema: No Airway Assessment Mallampati Score:: Class II C-Spine Mobility Assessed: Yes TMJ Mobility Assessed: Yes Dentition: Good Dentition (Nothing loose per pt.) Neurological Assessment Level of Consciousness: Awake, Alert, Appropriate and Follows Commands Hx Seizures: No Numbness or tingling in extremities: No Anesthesia Plan Anesthesia Risk discussed: Yes Anesthesia Plan: Verified ASA Class: III Anesthesia Type: MAC
[2024-04-15 09:16] VITALS: O2SAT 96
--- NOTE | 2024-04-15 09:24 | EXP.HP ---
History of Present Illness *Admission Date: 04/15/24 *Reason for visit:: Diarrhea/GERD *History of present illness: Mrs. Styles is a 59-year-old female who is here for diarrhea and weight loss. She also has chronic GERD and has been on omeprazole. She does have a personal history of adenomatous polyps and her last colonoscopy was July 2019.. The examination is deemed medically necessary for EGD and colonoscopy. The patient has been seen, interviewed and examined prior to the procedure by both myself and the anesthesia provider. [facility] Disclaimer: The information contained in this section may have been updated after the patient was seen, as this information can be updated by other users. Medical History (Updated 04/15/24 @ 09:26 by Isaías Pena II, MD) Diarrhea HTN (hypertension) Multiple lung nodules on CT Dyspnea on exertion Smoking greater than 30 pack years Pulmonary emphysema ILD (interstitial lung disease) Other forms of angina pectoris HLD (hyperlipidemia) Coronary artery disease Tobacco use Family history of coronary artery disease in father Surgical History H/O: hysterectomy History of cholecystectomy History of lumbar surgery History of heart artery stent Family History Other Asthma Heart attack Hypertension Stroke Social History Smoking Status: Former smoker tobacco type: cigarettes packs per day: 1 smoking status stop date: 04/02/23 second hand exposure: No alcohol intake: never substance use type: denies use current occupational status: unemployed Travel in the last 8 weeks: None household members: spouse housing: house current occupational exposures/hazards: No caffeine: Yes Other Medical History Have you received the Flu Vaccine for this season: Yes Have you received the Pneumonia Vaccine: No Review of Systems Review of Systems Review of systems (narrative): Negative *Cardiovascular Comments: Negative *Gastrointestinal Comments: Negative *Genitourinary Comments: Negative *Musculoskeletal Comments: Negative *Neurologic Comments: Negative Meds Home Medications and Allergies Home Medications ?Medication ?Instructions ?Recorded ?Confirmed ?Type pregabalin 75 mg capsule (Lyrica) 100 mg PO TID neuropathy 08/22/17 04/15/24 History trazodone 300 mg tablet 300 mg PO QHS sleep 08/22/17 04/15/24 History vitamin [id number] B1 1,000 1 ml IM MONTHLY Supplement 08/22/17 04/15/24 History mcg-100 mg/mL injection solution cyclobenzaprine 10 mg tablet 10 mg PO HS SLEEP 02/04/21 04/15/24 History aspirin 81 mg tablet,delayed 81 mg PO DAILY Blood thinner 02/23/21 04/10/24 History release bupropion HCl 150 mg tablet,12 hr 150 mg PO DAILY 12/20/22 04/15/24 History sustained-release escitalopram oxalate 20 mg tablet 20 mg PO DAILY 12/20/22 04/15/24 History nitroglycerin 0.4 mg sublingual 0.4 mg sublingual Q5M PRN chest 12/20/22 04/10/24 Rx tablet pain #25 tabs fluticasone furoate 27.5 1 spray intranasal DAILY PRN 04/18/23 04/15/24 History mcg/actuation nasal allergies spray,suspension clopidogrel 75 mg tablet See Rx Instructions .Route 04/27/23 04/10/24 Rx .COMPLEX #30 tabs ramipril 5 mg capsule (Altace) 5 mg PO DAILY #90 caps 09/11/23 04/15/24 Rx omeprazole 40 mg capsule,delayed See Rx Instructions .Route 09/26/23 04/15/24 Rx release .COMPLEX #90 caps ranolazine 500 mg tablet,extended 500 mg PO BID #60 tabs 12/07/23 04/15/24 Rx release,12 hr isosorbide mononitrate 60 mg 60 mg PO DAILY #90 tabs 12/13/23 04/15/24 Rx tablet,extended release 24 hr albuterol sulfate 90 mcg/actuation See Rx Instructions .Route 02/28/24 04/15/24 Rx aerosol inhaler .COMPLEX #8.5 grams atorvastatin 40 mg tablet See Rx Instructions .Route 02/28/24 04/15/24 Rx .COMPLEX #90 tabs bisoprolol fumarate 10 mg tablet 20 mg (2 x 10 mg) PO DAILY #180 02/29/24 04/15/24 Rx tabs alendronate 35 mg tablet 35 mg PO QWEEK 03/05/24 04/15/24 History aripiprazole 5 mg tablet 5 mg PO DAILY 09/24/24 11/04/24 History sodium,potassium,mag sulfates 17.5 See Rx Instructions PO .COMPLEX 04/05/24 04/15/24 Rx gram-3.13 gram-1.6 gram oral soln #354 mL (Suprep Bowel Prep Kit) New Prescriptions to Start Prescriptions: Allergies Allergy/AdvReac Type Severity Reaction Status Date / Time gabapentin [From Neurontin] Allergy Mild Flushing Verified 04/15/24 08:31 doxycycline AdvReac Mild Nausea Verified 04/15/24 08:31 Exam Data for Last 24 hours Vital signs and Labs for Last 24 Hours: Temp Pulse Resp BP Pulse Ox O2 Del Method 97.3 F L 78 18 116/80 96 Room Air 04/15/24 08:36 04/15/24 08:36 04/15/24 08:36 04/15/24 08:36 04/15/24 08:36 04/15/24 08:36 *Routine HEENT Exam Head: Present normocephalic Eye: Present EOMI and PERRL ENT: Present mucous membranes moist *Routine Neck Exam Neck: Present supple *Routine Respiratory Exam Respiratory: Present CTA bilaterally *Routine Cardiovascular Exam Cardiovascular: Present RRR *Routine Abdominal Exam Abdominal: Present soft and normoactive bowel sounds; Absent tenderness *Routine Rectal Exam Rectal:: deferred *Routine Genitalia Exam Genitalia:: deferred *Routine Extremities Exam Extremities: Absent cyanosis, clubbing or edema *Routine Skin Exam Skin: Present warm; Absent rash *Routine Neurological Exam Neurological: Present alert and oriented X3 Assessment and Plan *Assessment and plan (1) GERD (gastroesophageal reflux disease): Status: Acute Category: Medical Code(s): K21.9 - Gastro-esophageal reflux disease without esophagitis (2) Chronic diarrhea: Status: Acute Category: Medical Code(s): K52.9 - Noninfective gastroenteritis and colitis, unspecified (3) Abnormal weight loss: Status: Acute Category: Medical Code(s): R63.4 - Abnormal weight loss (4) Personal history of adenomatous and serrated colon polyps: Status: Acute Category: Medical Code(s): Z86.0101 - Personal history of adenomatous and serrated colon polyps Plan A/P: 1. Chronic diarrhea with weight loss and GERD is the preprocedural diagnosis. The patient will be anesthetized/sedated using MAC sedation. The patient has been seen and examined. Cardiac and lung assessment prior to the examination is stable. Proceed with planned EGD and colonoscopy
--- NOTE | 2024-04-15 09:26 | HMH.PROCNOTE ---
[facility] Procedure Note Date: 04/15/24 Time: 09:34 Procedure Note:: Upper Endoscopy Procedure Report: Esophagogastroduodenoscopy with cold biopsies Endoscopost: Isaías Pena II, MD Referring Physician: NELSON Ramírez Date of Procedure: April 15, 2024 Equipment: Olympus GIF 190 standard upper endoscope Sedation: MAC sedation Indications: Mrs. Styles is a 59-year-old female who is here for diagnostic panendoscopy. She does have a history of chronic GERD and is on omeprazole. This does control her heartburn and reflux. She has no abdominal pain or dyspepsia. She reports no dysphagia. The patient has had diarrhea daily (up to 2 or 3 daily) with bowel movements that are mostly loose or watery. She does see some bile colored diarrhea. She has had prior cholecystectomy many years ago. The patient has lost 25 pounds in the last 6 to 12 months. She reports no hematochezia or bright red blood per rectum. The patient did have an EGD with Karis Hood MD in June 2021 that was nondiagnostic. She had a colonoscopy with pa in July 2019 and had 2 polyps (tubular adenomas x 2) removed. Her maternal grandfather had colon cancer. Procedure: Prior to the procedure, a history and physical exam was performed, and patient's medications and allergies were reviewed. The risks, benefits and alternatives of the sedation and procedure were discussed with the patient. All questions were answered and informed consent was obtained. The patient was brought to the procedure room. Patient identification and proposed procedure were verified by the physician and the nurse. The patient was placed in a left lateral decubitus position and the scope was passed under direct vision. Throughout the procedure, the patient's blood pressure, pulse, and oxygen saturations were monitored continuously. The upper GI endoscopy was accomplished without difficulty. The patient tolerated the procedure well. Findings: The scope was passed directly into the upper esophagus and advanced to the third portion of the duodenum. The post bulbar duodenum and duodenal bulb were normal with normal mucosa and conniventes. Cold biopsies were taken from the second and first portion of the duodenum to rule out celiac disease. The scope was withdrawn through a normal duodenal bulb and pylorus into the stomach. There was very minimal reactive gastropathy of the antrum. There was mild chronic gastritis of the body and fundus. Cold biopsies were taken from the lesser curvature to rule out H. pylori. Upon retroflexion there was no hiatal hernia. The scope was then withdrawn into the esophagus. There was no evidence of reflux esophagitis or Dillard's esophagus. The remainder of the esophageal mucosa was normal. Impression: 1. Very mild chronic gastritis Plan: I will follow-up the biopsies and proceed with diagnostic colonoscopy. The patient does have uncomplicated GERD and should not require long-term PPI.
--- NOTE | 2024-04-15 09:34 | P.PCN_ITS ---
[facility] Procedure Note Date: 04/15/24 Time: 09:52 Procedure Note:: Colonoscopy Procedure Report: Colonoscopy with cold biopsies and cold snare polypectomy Endoscopist: Isaías Pena II, MD Referring physician: Camila Pat Date of Procedure: April 15, 2024 Equipment: Olympus 190 variable stiffness pediatric colonoscope Sedation: MAC sedation Indication: Mrs. Styles is a 59-year-old female who is here for diagnostic panendoscopy. She does have a history of chronic GERD and is on omeprazole. This does control her heartburn and reflux. She has no abdominal pain or dyspepsia. She reports no dysphagia. The patient has had diarrhea daily (up to 2 or 3 daily) with bowel movements that are mostly loose or watery. She does see some bile colored diarrhea. She has had prior cholecystectomy many years ago. The patient has lost 25 pounds in the last 6 to 12 months. She reports no hematochezia or bright red blood per rectum. The patient did have an EGD with Karis Hood MD in June 2021 that was nondiagnostic. She had a colonoscopy with [facility] in July 2019 and had 2 polyps (tubular adenomas x 2) removed. Her maternal grandfather had colon cancer. Procedure: Prior to the procedure, a history and physical exam was performed, and patient's medications and allergies were reviewed. The risks, benefits and alternatives of the sedation and procedure were discussed with the patient. All questions were answered and informed consent was obtained. The patient was brought to the procedure room. Patient identification and proposed procedure were verified by the physician and the nurse. The patient was placed in a left lateral decubitus position and the scope was passed under direct vision. Throughout the procedure, the patient's blood pressure, pulse, and oxygen saturations were monitored continuously. The colonoscopy was accomplished without difficulty. The patient tolerated the procedure well. Findings: On digital rectal examination there was normal rectal tone. There were no external hemorrhoids. The colonoscope was introduced through the anal canal to the rectum and advanced to the cecum. The ileocecal valve and appendiceal orifice were identified. The scope was advanced a short distance into the ileum which appeared grossly normal. The scope was then withdrawn into the colon. The cecum, ascending, transverse, descending, sigmoid and rectum were grossly normal. Cold biopsies were taken from the right colon x 6 to rule out microscopic colitis. There were 2 diminutive hyperplastic appearing polyps (3 and 4 mm) in the rectosigmoid and removed via cold snare polypectomy. There were no other mucosal abnormalities identified. Upon retroflexion within the rectum there were grade 1-2 internal hemorrhoids.The preparation was excellent throughout with Mccausland Preparation Score of 9. The cecal time was 11 minutes. Impression: 1. Diminutive hyperplastic appearing rectosigmoid polyps x 2 2. Grade 1-2 internal hemorrhoids Plan: I will follow-up the biopsies to rule out microscopic colitis. I am going to place the patient on colestipol for bile acid diarrhea. I will have the patient follow-up as an outpatient. If biopsies are negative and she fails to improve with colestipol, would consider alosetron. If the polyps are hyperplastic, she will not require surveillance colonoscopy again for 10 years.
[2024-04-15 09:55] VITALS: BP 75/45; PULSE 64; RESP 18; TEMP 36.3; O2SAT 99
[2024-04-15 10:05] VITALS: BP 85/55; PULSE 62; RESP 18; O2SAT 98
[2024-04-15 10:15] VITALS: BP 103/63; PULSE 62; RESP 18; O2SAT 100
[2024-04-15 10:25] VITALS: BP 101/70; PULSE 66; RESP 18; O2SAT 99
== END 2024-04-15 10:25 | disposition home or self-care (01) ==
PROVIDERS: PCP Nurse Practitioner Family; Visit Provider Internal Medicine Gastroenterology
PROC: 0DJ08ZZ Inspection of Upper Intestinal Tract, Via Natural or Artificial Opening Endoscopic (ICD-10-PCS; CPT 45378; principal; 2024-04-15 10:00)
DX: D12.7 Benign neoplasm of rectosigmoid junction (principal); D12.2 Benign neoplasm of ascending colon; K64.1 Second degree hemorrhoids; K21.9 Gastro-esophageal reflux disease without esophagitis; K52.9 Noninfective gastroenteritis and colitis, unspecified; R63.4 Abnormal weight loss; Z86.0101 Personal history of adenomatous and serrated colon polyps; I10 Essential (primary) hypertension; Z79.899 Other long term (current) drug therapy; Z68.20 Body mass index [BMI] 20.0-20.9, adult
CPT/HCPCS: 43239; 45380; 45385; 88305; J7120

== ENCOUNTER 2024-07-23 09:38 | Outpatient (CLI) | payer MEDICARE, SELFPAY ==
[2024-07-23 10:00] LABS: Albumin Level 4.3 g/dl (3.5-5.0); Chloride 102 mmol/L (98-107); Sodium 141 mmol/L (136-145)
[2024-07-23 10:01] LABS: Potassium 3.4 mmoL/L (3.5-5.1)
[2024-07-23 10:03] LABS: Alanine Aminotransferase 26 U/L (12-78); Alkaline Phosphatase 102 U/L (38-126); Anion Gap 7.4 mEq/L (5-15); Aspartate Amino Transferase 28 U/L (14-36); Basophils % 0.7 % (0.1-2.0); Bilirubin,Direct 0.1 mg/dl (0.0-0.4); Bilirubin,Indirect 0.2 mg/dL (0.0-0.9); Bilirubin,Total 0.3 mg/dl (0.2-1.3); Bilirubin,Unconjugated 0.3 mg/dL (0.0-1.1); Blood Urea Nitrogen 13 mg/dl (7-17); Calcium 9.1 mg/dl (8.4-10.2); Carbon Dioxide 35 mmol/L (22.0-30.0); Cholesterol 113 mg/dl (140-200); Eosinophils # 0.4 K/mm3 (0.0-0.4); Estimated Glomerular Filt Rate 85 ml/min (>60); GFR (African American) 103 ML/MIN (>60); Glucose 88 mg/dl (74-100); Hematocrit 37.6 % (37.0-47.0); Hemoglobin 12.7 g/dL (12.2-16.2); Lymphocytes # 1.8 K/mm3 (0.7-4.5); Lymphocytes % 31.8 % (10-50); Mean Corpuscular HGB Conc 33.8 g/dL (31.8-35.4); Mean Corpuscular Hemoglobin 33.4 pg (27.0-31.2); Mean Corpuscular Volume 98.9 fl (81-99); Mean Platelet Volume 9.3 fl (7.4-10.4); Monocytes # 0.3 K/mm3 (0.1-1.0); Monocytes % 5.9 % (1.7-9.3); Neutrophils # 3.1 K/mm3 (1.8-7.8); Neutrophils % 54.4 % (37.0-80.0); Platelet Count 255 K/mm3 (142-424); Red Cell Distribution Width 12.6 % (11.5-17.5); Total Protein,Serum 7.5 g/dl (6.3-8.2); Triglycerides 117 mg/dl (30-150); VLDL Cholesterol 23 mg/dL (0-40); White Blood Count 5.6 K/mm3 (4.8-10.8)
[2024-07-23 10:04] LABS: HDL Cholesterol 38 mg/dl (40-60); Magnesium 1.7 mg/dl (1.6-2.3)
[2024-07-23 10:41] LABS: Free T4 (Free Thyroxine) 1.48 ng/dl (0.78-2.19)
[2024-07-23 12:51] LABS: Direct LDL Cholesterol 45.88 mg/dL (100-129)
[2024-07-23 13:11] LABS: Thyroid Stimulating Hormone 1.98 uIU/mL (0.465-4.68)
== END 2024-07-23 23:59 | disposition home or self-care (01) ==
LOC: LAB 09:38
PROVIDERS: PCP Nurse Practitioner Family; Visit Provider Physician Assistant
DX: I10 Essential (primary) hypertension (principal); R06.09 Other forms of dyspnea; F17.210 Nicotine dependence, cigarettes, uncomplicated; E78.2 Mixed hyperlipidemia; I20.89 Other forms of angina pectoris
CPT/HCPCS: 36415; 80048; 80061; 80076; 83735; 84439; 84443; 85025

== ENCOUNTER 2024-07-29 08:27 | Day surgery (SDC) | payer MEDICARE, SELFPAY ==
[2024-07-29] VITALS (12 sets, daily range): BP systolic 113–140; BP diastolic 70–90; PULSE 64–87; RESP 17–75; O2SAT 92–100; BMI 20.2
--- NOTE | 2024-07-29 07:05 | IR_ITS ---
APPROVED REPORT Patient Location: Outpatient PROCEDURES Left heart catheterization Left ventriculogram Selective coronary angiogram Intravascular ultrasound of the proximal LAD Intravascular ultrasound the proximal dominant right coronary INDICATION Known coronary artery disease, Accelerated angina pectoris, Angiographic ambiguity in the LAD and right coronary Informed consent was obtained prior to the procedure. COMPLICATIONS NONE Estimated Blood Loss: LESS THAN 10 ML TECHNIQUE One percent lidocaine used to anesthetize the right anterior aspect of the wrist. The right radial artery was accessed via the Seldinger technique. A 6 [place] sheath was placed in the right radial artery. 2.5 mg of Verapamil, 800 mcg of nitroglycerin, 1mg Lidocaine and 5000 U Heparin were given through the arterial sheath. The 6 [place] JL 3 guide catheter was also used to perform left heart catheterization, left ventriculogram and selective coronary angiogram. At the end the diagnostic angiogram therapeutic Was administered giving a therapeutic ACT and the guide catheters placed in left main artery followed by Choice PT export wire placed into the LAD. Intravascular ultrasound probe was advanced which demonstrated mild disease in the proximal LAD with wide patency of the stent with excellent apposition and expansion. The catheter was then removed and placed in the right coronary artery where the process was repeated. The right coronary artery had proximal mild disease with widely patent stent. The apparatus was then removed the sheath was removed and hemostasis was achieved using TR banding patient was transferred to the postop putting in stable condition ANGIOGRAPHIC RESULTS The left main artery Normal The left anterior descending artery Mild 10 to 20% proximal stenosis with stents in the proximal to mid segment which are widely patent and free of in-stent restenosis flex and proximal distal transitioning The circumflex artery Is nondominant and has proximal 10% stenosis. The mid right coronary artery has a stent which is widely patent free of in-stent restenosis with excellent proximal distal transitioning. A small to medium sized first diagonal artery has BURTON II flow with mild ostial 30% stenosis The right coronary artery Is dominant has proximal 20 to 30% stenosis with stents in the proximal mid and distal segments are widely patent free of in-stent restenosis with excellent proximal distal transitioning The MALIN ventriculogram reveals Preserved 60% The left ventricular end-diastolic pressure 15 mmHg IMPRESSION Coronary disease as described above Slow flow down the first obtuse marginal artery consistent with endothelial dysfunction Preserved ejection fraction Normal LVEDP PLAN 1. Maximize antianginal medications 2. Medical management Electronically signed by : Dre Kendrick MD 07/29/2024 11:10:49
[2024-07-29 09:00] LABS: Basophils % 0.5 % (0.1-2.0); Eosinophils # 0.4 K/mm3 (0.0-0.4); Eosinophils % 5.9 % (0.1-12.0); Hematocrit 36.1 % (37.0-47.0); Hemoglobin 12.4 g/dL (12.2-16.2); Lymphocytes # 1.7 K/mm3 (0.7-4.5); Lymphocytes % 25.6 % (10-50); Mean Corpuscular HGB Conc 34.3 g/dL (31.8-35.4); Mean Corpuscular Hemoglobin 34.2 pg (27.0-31.2); Mean Corpuscular Volume 99.4 fl (81-99); Monocytes # 0.3 K/mm3 (0.1-1.0); Monocytes % 4.9 % (1.7-9.3); Neutrophils # 4.1 K/mm3 (1.8-7.8); Neutrophils % 62.6 % (37.0-80.0); Platelet Count 205 K/mm3 (142-424); Red Blood Count 3.63 M/mm3 (4.20-5.40); White Blood Count 6.6 K/mm3 (4.8-10.8)
[2024-07-29 09:09] LABS: Chloride 103 mmol/L (98-107); Sodium 140 mmol/L (136-145)
[2024-07-29 09:12] LABS: Blood Urea Nitrogen 10 mg/dl (7-17); Calcium 8.6 mg/dl (8.4-10.2); Carbon Dioxide 35 mmol/L (22.0-30.0); Creatinine Clearance Estimated 55 mL/min (50-200); Estimated Glomerular Filt Rate 73 ml/min (>60); GFR (African American) 88 ML/MIN (>60); Glucose 104 mg/dl (74-100)
[2024-07-29] MEDS: diphenhydrAMINE 50MG/ML VIAL 50 MG IV (10:22)
[2024-07-29] MEDS: HEPARIN 1,000 UNITS/500ML NS (CATH LAB) 3000 UNIT IV (10:22)
[2024-07-29] MEDS: NITROGLYCERIN 800MCG/8ML SYR (CATH LAB) 800 MCG IA (10:23)
[2024-07-29] MEDS: MIDAZOLAM HCL 1MG/ML 5ML VIAL 1 MG IV (10:23)
[2024-07-29] MEDS: LIDOCAINE 1% 10ML MDV 20 ML IJ (10:23)
[2024-07-29] MEDS: 0.9 % SODIUM CHLORIDE 500 ML 25 ML IV (10:23)
[2024-07-29] MEDS: VERAPAMIL 2.5MG/ML 2ML VIAL 2.5 MG IV (10:23)
[2024-07-29] MEDS: FENTANYL 100MCG/2ML VIAL 50 MCG IV (10:24)
[2024-07-29] MEDS: HEPARIN 1,000 UNITS/ML 10ML VIAL (CATH LAB) 10000 UNIT IV (10:24)
[2024-07-29] MEDS: PROPOFOL 10MG/ML 20ML VIAL 30 MG IV (11:23)
[2024-07-29] MEDS: IOPAMIDOL-370 (76%);100ML BOTTLE 60 ML IV (12:03)
== END 2024-07-29 14:12 | disposition home or self-care (01) ==
PROVIDERS: PCP Nurse Practitioner Family; Visit Provider Internal Medicine
DX: I25.118 Atherosclerotic heart disease of native coronary artery with other forms of angina pectoris (principal); E78.2 Mixed hyperlipidemia; I10 Essential (primary) hypertension; F17.210 Nicotine dependence, cigarettes, uncomplicated; Z79.899 Other long term (current) drug therapy; Z82.49 Family history of ischemic heart disease and other diseases of the circulatory system; I70.1 Atherosclerosis of renal artery
CPT/HCPCS: 80048; 85025; 92978; 92979; 93458; 99152; 99153; C1725; C1769; J1200; J1644; J2250; J3010; Q9967

== ENCOUNTER 2024-08-22 18:31 | Emergency (ER) | payer MEDICARE, SELFPAY ==
[2024-08-22] VITALS (7 sets, daily range): BP systolic 130–150; BP diastolic 68–100; PULSE 57–67; RESP 13–18; TEMP 36.6; O2SAT 95–96; BMI 19.8
--- NOTE | 2024-08-22 18:50 | ECG_ITS ---
APPROVED REPORT Exam: Resting ECG HR:57 bpm ECG Measurements Heart Rate 57 AXES CO 115 P 42 QRSd 90 QRS 75 QT 421 T 66 QTc 416 Conclusion SINUS BRADYCARDIA WITH SHORT CO INTERVAL MINIMAL ST DEPRESSION [0.025+ mV ST DEPRESSION] BORDERLINE ECG Electronically signed by : SOWMYA RUIZ, 08/23/2024 10:25:03
[2024-08-22 19:52] LABS: Basophils % 0.3 % (0.1-2.0); Eosinophils % 0.5 % (0.1-12.0); Hematocrit 39.6 % (37.0-47.0); Hemoglobin 13.8 g/dL (12.2-16.2); Lymphocytes # 0.8 K/mm3 (0.7-4.5); Lymphocytes % 12.8 % (10-50); Mean Corpuscular HGB Conc 34.8 g/dL (31.8-35.4); Mean Corpuscular Hemoglobin 33.9 pg (27.0-31.2); Mean Corpuscular Volume 97.3 fl (81-99); Mean Platelet Volume 9.3 fl (7.4-10.4); Monocytes # 0.2 K/mm3 (0.1-1.0); Monocytes % 2.7 % (1.7-9.3); Neutrophils % 83.4 % (37.0-80.0); Platelet Count 214 K/mm3 (142-424); Red Blood Count 4.07 M/mm3 (4.20-5.40); Red Cell Distribution Width 12.9 % (11.5-17.5)
[2024-08-22 19:57] LABS: Chloride 100 mmol/L (98-107)
[2024-08-22 19:58] LABS: Albumin Level 4.9 g/dl (3.5-5.0); Potassium 4.6 mmoL/L (3.5-5.1); Sodium 138 mmol/L (136-145)
[2024-08-22 20:00] LABS: Alanine Aminotransferase 20 U/L (12-78); Albumin/Globulin Ratio 1.4 (1.1-1.8); Alkaline Phosphatase 97 U/L (38-126); Anion Gap 11.6 mEq/L (5-15); Aspartate Amino Transferase 28 U/L (14-36); Bilirubin,Total 0.4 mg/dl (0.2-1.3); Blood Urea Nitrogen 7 mg/dl (7-17); Carbon Dioxide 31 mmol/L (22.0-30.0); Creatinine Clearance Estimated 54 mL/min (50-200); Estimated Glomerular Filt Rate 102 ml/min (>60); GFR (African American) 123 ML/MIN (>60); Globulin 3.5 g/dL (1.3-3.2); Total Protein,Serum 8.4 g/dl (6.3-8.2)
[2024-08-22] MEDS: 0.9 % SODIUM CHLORIDE 1000ML 1,000 ML 999 ML IV (20:00)
[2024-08-22 20:01] LABS: Calcium 10.1 mg/dl (8.4-10.2); Glucose 143 mg/dl (74-100)
[2024-08-22 20:02] LABS: Microscopic, Urine URINE MICROSCOPIC (MICROSCOPIC)
[2024-08-22] MEDS: ONDANSETRON 4MG/2ML VIAL 4 MG IV (20:03)
[2024-08-22 20:05] LABS: HIV Combo NEGATIVE (Negative)
[2024-08-22 20:26] LABS: Hepatitis C Ab Qual. W/ RFX NEGATIVE (Negative)
[2024-08-22 20:32] LABS: Appearance,Urine Clear (Clear); Color,Urine Yellow (Yellow); PH,Urine 6.5 (5.0-8.5); Protein,Urine Negative (Negative)
[2024-08-22 20:33] LABS: Bilirubin,Urine Negative (Negative); Blood, Urine Negative (Negative); Glucose,Urine (UA) Negative (Negative); Ketones,Urine Negative (Negative); Leukocyte Esterase,Urine Negative (Negative); Urobilinogen,Urine 0.2 EU/dl (0.2)
--- NOTE | 2024-08-22 21:23 | [facility].EDGENADL ---
Discharge Plan Disposition Patient Disposition: Home, Self-Care Condition: Good Prescriptions Prescriptions: No Action trazodone 300 mg tablet 300 mg PO QHS pregabalin [Lyrica] 75 mg capsule 100 mg PO TID vitamin [id number] B1 1,000-100 mg/mL solution 1 ml IM MONTHLY alendronate 35 mg tablet 35 mg PO QWEEK Patient Comments: TAKE ONE TABLET BY MOUTH ONCE a WEEK cyclobenzaprine 10 mg tablet 10 mg PO HS escitalopram oxalate 20 mg tablet 20 mg PO DAILY nitroglycerin 0.4 mg tablet, sublingual 0.4 mg SUBLINGUAL Q5M PRN (Reason: chest pain) Qty: 25 0RF Rx Instructions: do not exceed 3 doses per episode ramipril [Altace] 5 mg capsule 5 mg PO DAILY Qty: 90 4RF omeprazole 40 mg capsule,delayed release(DR/EC) See Rx Instructions .ROUTE .COMPLEX Qty: 90 3RF Dose Instruction: TAKE ONE CAPSULE BY MOUTH EVERY DAY -SWALLOW WHOLE. DO NOT CRUSH OR CHEW- Rx Instructions: TAKE ONE CAPSULE BY MOUTH EVERY DAY -SWALLOW WHOLE. DO NOT CRUSH OR CHEW- atorvastatin 40 mg tablet See Rx Instructions .ROUTE .COMPLEX Qty: 90 3RF Dose Instruction: TAKE ONE TABLET BY MOUTH EVERY DAY Rx Instructions: TAKE ONE TABLET BY MOUTH EVERY DAY bisoprolol fumarate 10 mg tablet 20 mg PO DAILY Qty: 180 3RF clopidogrel 75 mg tablet See Rx Instructions .ROUTE .COMPLEX Qty: 30 11RF Dose Instruction: TAKE ONE TABLET BY MOUTH EVERY DAY Rx Instructions: TAKE ONE TABLET BY MOUTH EVERY DAY ranolazine 500 mg tablet extended release 12 hr See Rx Instructions .ROUTE .COMPLEX Qty: 180 3RF Dose Instruction: TAKE ONE TABLET BY MOUTH TWICE DAILY Rx Instructions: TAKE ONE TABLET BY MOUTH TWICE DAILY isosorbide mononitrate 60 mg tablet extended release 24 hr See Rx Instructions .ROUTE .COMPLEX Qty: 90 3RF Dose Instruction: TAKE ONE TABLET BY MOUTH EVERY DAY Rx Instructions: TAKE ONE TABLET BY MOUTH EVERY DAY albuterol sulfate 90 mcg/actuation HFA aerosol inhaler See Rx Instructions .ROUTE .COMPLEX Qty: 8.5 2RF Dose Instruction: INHALE TWO PUFFS BY MOUTH FOUR TIMES DAILY NEEDED FOR SHORTNESS OF BREATH OR wheezing Rx Instructions: INHALE TWO PUFFS BY MOUTH FOUR TIMES DAILY NEEDED FOR SHORTNESS OF BREATH OR wheezing fluticasone furoate 27.5 mcg/actuation spray,suspension 1 spray NS DAILY PRN (Reason: allergies) aspirin 81 MG tablet,delayed release (DR/EC) 81 mg PO DAILY Referrals Follow up/Referrals: Camila Pat APRN [Primary Care Provider] - See instructions Activity Restrictions/Add. Instructions Additional Instructions/Restrictions: Today your evaluated in the emergency department and you were given IV fluids. Please follow-up with your PCP within 7 days. Please return to the ED for worsening of condition. Clinical Impressions Clinical Impression: Diarrhea Instructions Patient Instructions: DI for Nausea -- Adult Print Language Print Language: Chinese Discharge ED Provider: Alberto Singleton General Adult HPI <Adelia Suazo APRN - Last Filed: 08/22/24 21:52> General Chief complaint: Nausea/Vomiting/Diarrhea Stated complaint: Diarrhea Time Seen by Provider: 08/22/24 18:49 Mode of Arrival: Wheelchair Source of Information: Patient Description of Symptoms (Recalled from ER Triage Doc. by RN): Patient states she has had diarrhea all day and is now complaining of chest pressure. States she has also had some confusion. History of Present Illness HPI narrative: patient is a 59-year-old female with PMHx history of colon polyps, chronic diarrhea, GERD, unstable angina who was recently had multiple scopes for diarrhea without diagnosis. Presents today for diarrhea that started today, patient states she is unable to eat or drink due to the diarrhea. Related Data Home Medications ?Medication ?Instructions ?Recorded ?Confirmed pregabalin 75 mg capsule (Lyrica) 100 mg PO TID neuropathy 08/22/17 07/29/24 trazodone 300 mg tablet 300 mg PO QHS sleep 08/22/17 07/29/24 vitamin [id number] B1 1,000 1 ml IM MONTHLY Supplement 08/22/17 07/29/24 mcg-100 mg/mL injection solution cyclobenzaprine 10 mg tablet 10 mg PO HS SLEEP 02/04/21 07/29/24 aspirin 81 mg tablet,delayed 81 mg PO DAILY Blood thinner 02/23/21 07/29/24 release escitalopram oxalate 20 mg tablet 20 mg PO DAILY 12/20/22 07/29/24 fluticasone furoate 27.5 1 spray intranasal DAILY PRN 04/18/23 07/29/24 mcg/actuation nasal allergies spray,suspension alendronate 35 mg tablet 35 mg PO QWEEK 03/05/24 07/29/24 Previous Rx's ?Medication ?Instructions ?Recorded nitroglycerin 0.4 mg sublingual 0.4 mg sublingual Q5M PRN chest 12/20/22 tablet pain #25 tabs ramipril 5 mg capsule (Altace) 5 mg PO DAILY #90 caps 09/11/23 omeprazole 40 mg capsule,delayed See Rx Instructions .Route 09/26/23 release .COMPLEX #90 caps atorvastatin 40 mg tablet See Rx Instructions .Route 02/28/24 .COMPLEX #90 tabs bisoprolol fumarate 10 mg tablet 20 mg (2 x 10 mg) PO DAILY #180 02/29/24 tabs clopidogrel 75 mg tablet See Rx Instructions .Route 05/01/24 .COMPLEX #30 tabs isosorbide mononitrate 60 mg See Rx Instructions .Route 07/11/24 tablet,extended release 24 hr .COMPLEX #90 tabs ranolazine 500 mg tablet,extended See Rx Instructions .Route 07/11/24 release,12 hr .COMPLEX #180 tabs albuterol sulfate 90 mcg/actuation See Rx Instructions .Route 08/01/24 aerosol inhaler .COMPLEX #8.5 grams Allergies Allergy/AdvReac Type Severity Reaction Status Date / Time gabapentin (From Neurontin) Allergy Mild Flushing Verified 07/23/24 09:11 doxycycline AdvReac Mild Nausea Verified 07/23/24 09:11 [facility] <Adelia Suazo APRN - Last Filed: 08/22/24 21:52> [facility] Disclaimer: The information contained in this section may have been updated after the patient was seen, as this information can be updated by other users. Medical History Diarrhea HTN (hypertension) Multiple lung nodules on CT Dyspnea on exertion Smoking greater than 30 pack years Pulmonary emphysema ILD (interstitial lung disease) Other forms of angina pectoris HLD (hyperlipidemia) Coronary artery disease Tobacco use Family history of coronary artery disease in father Surgical History H/O: hysterectomy History of cholecystectomy History of lumbar surgery History of heart artery stent Family History Other Asthma Heart attack Hypertension Stroke Social History Smoking Status: Former smoker tobacco type: cigarettes packs per day: 1 smoking status stop date: 04/02/23 second hand exposure: No alcohol intake: never substance use type: denies use current occupational status: unemployed Travel in the last 8 weeks: None household members: spouse housing: house current occupational exposures/hazards: No caffeine: Yes Have you lived/traveled outside [place] in past 30 days?: No Contact w/someone who lives/traveled outside [place] past 30 days?: No Exposure to someone with infectious disease in past 14 days?: No Do you have a fever (greater than 100.4 F or 38 C)?: No Have you tested positive for COVID-19: No Exposed to someone with COVID-19 in past 14 days?: No Do you have a sore throat?: No Do you have a cough?: No Do you have any weakness?: Yes Do you have any diarrhea?: Yes Are you experiencing any unusual bleeding?: No Do you have any muscle aches/pain?: No Do you have any abdominal pain?: No Are you experiencing loss of taste or smell?: No Other Medical History Have you received the Flu Vaccine for this season: Yes Have you received the Pneumonia Vaccine: No <Adelia Suazo APRN - Last Filed: 08/22/24 21:52> ROS Obtained: Yes Systems reviewed as appropriate & no additional complaints except as documented Physical Exam <Adelia Suazo APRN - Last Filed: 08/22/24 21:52> General General appearance: alert and in no apparent distress Head Head exam: atraumatic and normocephalic Eye Eye exam: Present normal appearance and PERRL ENT ENT exam: Present normal exam Neck Neck exam: Present normal inspection Chest Chest inspection: Present normal inspection and symmetric chest wall rise; Absent tenderness Respiratory Respiratory exam: Present normal lung sounds bilaterally Cardiovascular Cardiovascular exam: Present regular rate Abdominal Exam Abdominal exam: Present soft and normal bowel sounds; Absent tenderness Extremities Exam Extremities exam: Present normal inspection and full ROM Back Exam Back exam: Present normal inspection and full ROM Neurological Exam Neurological exam: Present alert and oriented X3 Psychiatric Psychiatric exam: Present normal affect and normal mood Skin Skin exam: Present warm and dry Medical Decision Making <Adelia Suazo APRN - Last Filed: 08/22/24 21:52> Medical Records Screening: Per USPSTF and CDC recommendations, given the prevalence of disease in our region, it is our hospital?s policy to screen for HIV and viral Hepatitis for all patients aged 18 and over and those with ongoing risk factors. Justice Inquiry Pt receiving controlled substance: No Justice was queried for this patient: No Vital Signs: 08/22/24 18:48 08/22/24 19:17 08/22/24 19:30 Temperature Temperature Source Pulse Rate 66 Pulse Rate [Radial] 67 Respiratory Rate 16 14 13 Blood Pressure Blood Pressure [Left Arm] 150/100 H Blood Pressure Mean [Left Arm] 116 Blood Pressure Source Blood Pressure Source [Left Arm] Automatic Cuff Blood Pressure Position Blood Pressure Position [Left Arm] Sitting 02 Sat by Pulse Oximetry 96 96 Oxygen Delivery Method Room Air 08/22/24 20:05 08/22/24 20:30 08/22/24 21:00 Temperature Temperature Source Pulse Rate 57 L 66 63 Pulse Rate [Radial] Respiratory Rate 15 15 13 Blood Pressure 149/75 H 135/93 H 138/68 Blood Pressure [Left Arm] Blood Pressure Mean [Left Arm] Blood Pressure Source Blood Pressure Source [Left Arm] Blood Pressure Position Blood Pressure Position [Left Arm] 02 Sat by Pulse Oximetry 95 95 96 Oxygen Delivery Method 08/22/24 22:00 Temperature 97.9 F Temperature Source Oral Pulse Rate 60 Pulse Rate [Radial] Respiratory Rate 18 Blood Pressure 130/74 Blood Pressure [Left Arm] Blood Pressure Mean [Left Arm] Blood Pressure Source Automatic Cuff Blood Pressure Source [Left Arm] Blood Pressure Position Supine Blood Pressure Position [Left Arm] 02 Sat by Pulse Oximetry Oxygen Delivery Method Room Air Lab Data Lab Results 08/22/24 18:56: WBC 6.0, RBC 4.07 L, Hgb 13.8, Hct 39.6, MCV 97.3, MCH 33.9 H, MCHC 34.8, RDW 12.9, Plt Count 214, MPV 9.3, Neut % (Auto) 83.4 H, Lymph % (Auto) 12.8, [place] % (Auto) 2.7, Eos % (Auto) 0.5, Baso % (Auto) 0.3, Neut # (Auto) 5.0, Lymph # (Auto) 0.8, [place] # (Auto) 0.2, Eos # (Auto) 0.0, Baso # (Auto) 0.0, Sodium 138, Potassium 4.6, Chloride 100, Carbon Dioxide 31 H, Anion Gap 11.6, BUN 7, Creatinine 0.60, Estimated Creat Clear 54, Estimated GFR 102, Est GFR ( Amer) 123, Glucose 143 H, Calcium 10.1, Total Bilirubin 0.4, AST 28, ALT 20, Alkaline Phosphatase 97, Total Protein 8.4 H, Albumin 4.9, Globulin 3.5 H, Albumin/Globulin Ratio 1.4, HCV Ab MARCO w/Rflx PCR Qn Negative, HIV Ag/Ab Combo Qual Negative 08/22/24 19:58: Urine Color Yellow, Urine Appearance Clear, Urine pH 6.5, Ur Specific [place] 1.010, Urine Protein Negative, Urine Glucose (UA) Negative, Urine Ketones Negative, Urine Blood Negative, Urine Nitrate Negative, Urine Bilirubin Negative, Urine Urobilinogen 0.2, Ur Leukocyte Esterase Negative, Urine RBC 10-20, Urine WBC Occasional, Ur Squamous Epith Cells 3-5, Urine Bacteria 1+ 08/22/24 18:56 08/22/24 18:56 Orders (Tests/Meds): ED MEDICATIONS Discontinued Medications Generic Name Dose Route Start Last Admin Trade Name Freq PRN Reason Stop Dose Admin Sodium Chloride 1,000 mls @ 999 mls/hr 08/22/24 19:42 08/22/24 20:00 Sod Chlor 0.9% 1000ml Bag IV 08/22/24 20:42 999 mls/hr .Q1H1M ONE Administration Ondansetron HCl 4 mg 08/22/24 20:01 08/22/24 20:03 Ondansetron 4mg/2ml Vial IV 08/22/24 20:02 4 mg ONCE ONE Administration ORDERS Category Date Time Status CBC w/Auto Diff [Complete Blood Count Auto Diff] Stat Lab 08/22/24 18:56 Completed CMP [Comprehensive Metabolic Panel] Stat Lab 08/22/24 18:56 Completed HIV Combo Stat Lab 08/22/24 18:56 Completed Hepatitis C Ab Qual. W/ RFX Stat Lab 08/22/24 18:56 Completed Urinalysis and Microscopic Stat Lab 08/22/24 19:58 Completed Urine Culture Stat Micro 08/22/24 19:58 Received Medical Decision Narrative: In summary, patient is a 59-year-old female with PMHx history of colon polyps, chronic diarrhea, GERD, unstable angina who was recently had multiple scopes for diarrhea without diagnosis. Presents today for diarrhea that started today, patient states she is unable to eat or drink due to the diarrhea. Patient states she wants IV fluids for rehydration. She denies any additional symptoms. Denies fever, chills, headache, visual disturbances, chest pain, shortness of breath, abdominal pain, back pain, dysuria. Differential diagnosis is chronic diarrhea, infectious process, electrolyte abnormality, dehydration. Patient was symptomatically managed with Zofran and IV fluids. Labs reviewed by me. CBC unremarkable for any leukocytosis, stable H&H. CMP unremarkable for any actionable abnormalities. Patient's urine positive for nitrites, negative for leuk esterase. Patient denied any urinary symptoms. Upon reevaluation, patient states she feels so much better and her symptoms have completely resolved. Patient is drinking water and Gatorade at bedside without difficulty. I discussed with her and her that she will need to increase fluid intake and follow-up with PCP within 7 days. We discussed very strict return precautions to the ED and patient verbalized understanding. <Alberto Singleton MD - Last Filed: 08/22/24 22:14> Vital Signs: 08/22/24 18:48 08/22/24 19:17 08/22/24 19:30 Temperature Temperature Source Pulse Rate 66 Pulse Rate [Radial] 67 Respiratory Rate 16 14 13 Blood Pressure Blood Pressure [Left Arm] 150/100 H Blood Pressure Mean [Left Arm] 116 Blood Pressure Source Blood Pressure Source [Left Arm] Automatic Cuff Blood Pressure Position Blood Pressure Position [Left Arm] Sitting 02 Sat by Pulse Oximetry 96 96 Oxygen Delivery Method Room Air 08/22/24 20:05 08/22/24 20:30 08/22/24 21:00 Temperature Temperature Source Pulse Rate 57 L 66 63 Pulse Rate [Radial] Respiratory Rate 15 15 13 Blood Pressure 149/75 H 135/93 H 138/68 Blood Pressure [Left Arm] Blood Pressure Mean [Left Arm] Blood Pressure Source Blood Pressure Source [Left Arm] Blood Pressure Position Blood Pressure Position [Left Arm] 02 Sat by Pulse Oximetry 95 95 96 Oxygen Delivery Method 08/22/24 22:00 Temperature 97.9 F Temperature Source Oral Pulse Rate 60 Pulse Rate [Radial] Respiratory Rate 18 Blood Pressure 130/74 Blood Pressure [Left Arm] Blood Pressure Mean [Left Arm] Blood Pressure Source Automatic Cuff Blood Pressure Source [Left Arm] Blood Pressure Position Supine Blood Pressure Position [Left Arm] 02 Sat by Pulse Oximetry Oxygen Delivery Method Room Air Lab Data Lab Results 08/22/24 18:56: WBC 6.0, RBC 4.07 L, Hgb 13.8, Hct 39.6, MCV 97.3, MCH 33.9 H, MCHC 34.8, RDW 12.9, Plt Count 214, MPV 9.3, Neut % (Auto) 83.4 H, Lymph % (Auto) 12.8, [place] % (Auto) 2.7, Eos % (Auto) 0.5, Baso % (Auto) 0.3, Neut # (Auto) 5.0, Lymph # (Auto) 0.8, [place] # (Auto) 0.2, Eos # (Auto) 0.0, Baso # (Auto) 0.0, Sodium 138, Potassium 4.6, Chloride 100, Carbon Dioxide 31 H, Anion Gap 11.6, BUN 7, Creatinine 0.60, Estimated Creat Clear 54, Estimated GFR 102, Est GFR ( Amer) 123, Glucose 143 H, Calcium 10.1, Total Bilirubin 0.4, AST 28, ALT 20, Alkaline Phosphatase 97, Total Protein 8.4 H, Albumin 4.9, Globulin 3.5 H, Albumin/Globulin Ratio 1.4, HCV Ab MARCO w/Rflx PCR Qn Negative, HIV Ag/Ab Combo Qual Negative 08/22/24 19:58: Urine Color Yellow, Urine Appearance Clear, Urine pH 6.5, Ur Specific [place] 1.010, Urine Protein Negative, Urine Glucose (UA) Negative, Urine Ketones Negative, Urine Blood Negative, Urine Nitrate Negative, Urine Bilirubin Negative, Urine Urobilinogen 0.2, Ur Leukocyte Esterase Negative, Urine RBC 10-20, Urine WBC Occasional, Ur Squamous Epith Cells 3-5, Urine Bacteria 1+ Orders (Tests/Meds): ED MEDICATIONS Discontinued Medications Generic Name Dose Route Start Last Admin Trade Name Freq PRN Reason Stop Dose Admin Sodium Chloride 1,000 mls @ 999 mls/hr 08/22/24 19:42 08/22/24 20:00 Sod Chlor 0.9% 1000ml Bag IV 08/22/24 20:42 999 mls/hr .Q1H1M ONE Administration Ondansetron HCl 4 mg 08/22/24 20:01 08/22/24 20:03 Ondansetron 4mg/2ml Vial IV 08/22/24 20:02 4 mg ONCE ONE Administration ORDERS Category Date Time Status CBC w/Auto Diff [Complete Blood Count Auto Diff] Stat Lab 08/22/24 18:56 Completed CMP [Comprehensive Metabolic Panel] Stat Lab 08/22/24 18:56 Completed HIV Combo Stat Lab 08/22/24 18:56 Completed Hepatitis C Ab Qual. W/ RFX Stat Lab 08/22/24 18:56 Completed Urinalysis and Microscopic Stat Lab 08/22/24 19:58 Completed Urine Culture Stat Micro 08/22/24 19:58 Received ECG Data Tracing #1: I reviewed this ECG and interpreted as documented below: (Sinus bradycardia 57 bpm with SD 115, QRS 90, QTc 416. No acute ischemic change.) Medical Decision Narrative: In summary, patient is a 59-year-old female with PMHx history of colon polyps, chronic diarrhea, GERD, unstable angina who was recently had multiple scopes for diarrhea without diagnosis. Presents today for diarrhea that started today, patient states she is unable to eat or drink due to the diarrhea. Patient states she wants IV fluids for rehydration. She denies any additional symptoms. Denies fever, chills, headache, visual disturbances, chest pain, shortness of breath, abdominal pain, back pain, dysuria. Differential diagnosis is chronic diarrhea, infectious process, electrolyte abnormality, dehydration. Patient was symptomatically managed with Zofran and IV fluids. Labs reviewed by me. CBC unremarkable for any leukocytosis, stable H&H. CMP unremarkable for any actionable abnormalities. Patient's urine positive for nitrites, negative for leuk esterase. Patient denied any urinary symptoms. Upon reevaluation, patient states she feels so much better and her symptoms have completely resolved. Patient is drinking water and Gatorade at bedside without difficulty. I discussed with her and her that she will need to increase fluid intake and follow-up with PCP within 7 days. We discussed very strict return precautions to the ED and patient verbalized understanding. I was consulted by the MALLY, and we discussed the complexity of the problems being addressed. I approved the treatment and management plan for this patient's care in the Emergency Department, thus performing a substantive portion of the medical decision making. Alberto Singleton MD Critical Care <Adelia Suazo, MEDICAL SCIENCE LIAISON - Last Filed: 08/22/24 21:52> Critical Care Time Critical Care Time: No
[2024-08-22 21:29] LABS: Nitrate,Urine Negative (Negative)
[2024-08-22 22:11] LABS: Bacteria,Urine 1+ /lpf; WBC,Urine Occasional #/hpf (0-3)
== END 2024-08-22 22:01 | disposition home or self-care (01) ==
PROVIDERS: Nurse Practitioner; Emergency Provider Emergency Medicine; PCP Nurse Practitioner Family
DX: R19.7 Diarrhea, unspecified (principal); R07.89 Other chest pain; R41.0 Disorientation, unspecified
CPT/HCPCS: 80053; 81001; 85025; 86803; 87086; 87389; 93005; 96360; 96374; 99283; J2405; J7030

== ENCOUNTER 2025-03-12 13:43 | Outpatient (CLI) | payer MEDICARE, SELFPAY ==
--- OUTSIDE RECORDS SUMMARY | 2025-02-12 13:00 | XMS_ITS | Encounter Summary ---
Author Organization Healthcare Address [address] [place] [address] Care Team Providers Care Member Certification Manager Name Role Phone Camila Pat APRN Primary Care Provider [phone]- [phone] Reason for Visit * Reason Comments Med Refill Pump refill Encounter Details Date Type Department Care Team (Late st Contact Info) Description 02/12/2025 1:00 PM EDT Office Visit [facility] Interventional Pain Medicine [address] [facility] [place] [address] Tate Kaiser MD [address] [facility] [address] [place] [address] Postlaminectomy syndrome, not elsewhere classified (Primary Dx); Lumbar radiculopathy Social History Tobacco Use Types Packs/Day Years Used Date Smoking Tobacco: Former Cigarettes 1 - 1979 Smokeless Tobacco: Never Alcohol Use Standard Drinks/Week Comments Not Currently 0 (1 standard drink = 0.6 oz pur e alcohol) PHQ-2 Answer Date Recorded Patient Health Questionnaire-2 Score 0 02/13/2025 PHQ-9 Answer Date Recorded Patient Health Questionnaire-9 Score 0 02/13/2025 PHQ-2A Answer Date Recorded Patient Health Questionnaire-2 Score 0 05/01/2023 Comments No Sex and Gender Information Value Date Recorded Sex Assigned at Not on file Legal Sex Female 8:55 PM EDT Gender Identity Not on file Sexual Orientation Not on file documented as of this encounter Last Filed Vital Signs Vital Sign Reading Time Taken Comments Blood Pressure 125/76 02/12/2025 1:11 PM EDT Pulse 75 02/12/2025 1:11 PM EDT Temperature 36.9 C (98.4 F) 02/12/2025 1:11 PM EDT Respiratory Rate 16 02/12/2025 1:11 PM EDT Oxygen Saturation - - Inhaled Oxygen Concentration - - Weight 58.1 kg (128 lb) 02/12/2025 1:11 PM EDT Height 170.2 cm (5' 7 ) 02/12/2025 1:11 PM EDT Body Mass Index 20.05 02/12/2025 1:11 PM EDT documented in this encounter Functional Status * Over the past 2 weeks, how often have you been bothered by any of the following problems? Question Answer Date of Assessment Author Little interest or pleasure in doing things Not at all 02/13/2025 12:18 PM EDT Naomi Palumbo RN Feeling down, depressed, or hopeless Not at all 02/13/2025 12:18 PM EDT Naomi Palumbo RN Patient Health Questionnaire -2 Score 0 02/13/2025 12:18 PM EDT Naomi Palumbo RN * Question Answer Date of Assessment Author Trouble falling or staying asleep, or sleeping too much Not at all 02/13/2025 12:18 PM EDT Naomi Palumbo RN Feeling tired or having zoë le energy Not at all 02/13/2025 12:18 PM URIELT Naomi Palumbo RN Poor appetite or overeating Not at all 02/13/2025 12 :18 PM EDT Naomi Palumbo RN Feeling bad about yourself - or that you are a failure or have let yourself or your family down Not at all 02/13/2025 12:18 PM EDT Naomi Palumbo RN Trouble concentrating on things, such as reading the newspaper or watching television Not at all 02/13/2025 12:18 PM URIELT Naomi Palumbo RN Moving or speaking so slowly that other people could have noticed? Or the opposite - being so fidgety or restless that you have been moving around a lot more than usual. Not at all 02/13/2025 12:18 PM EDT Naomi Palumbo RN Thoughts that you would be better off or hurting yourself in some way Not at all 02/13/2025 12:18 PM EDT Naomi Palumbo, RN Patient Health Questionnaire -9 Score 0 02/13/2025 12:18 PM EDT Naomi Palumbo RN documented as of this encounter Miscellaneous Notes * Progress Notes - Dorothea Omalley JINA Estrella - 02/12/2025 1:00 PM EDT Interventional Pain Medicine Follow Up Patient Note Subjective: Interval History: 02/12/2025 Beverly presents for ITDDS refill for chronic low back pain into the LLE. No new issues with the pump. ELICEO Jan 2026 Has lost weight- Pain 3/10 Reports pain is generally exacerbated with standing, walking, prolonged sitting and reduced with pacing activity, rest, exercise, stretching, medication. ITDDS typically provides >50% relief. Current settings: Morphine 2.5mg/ml at 0.7552mg/day Bupivacaine 12mg/ml at 3.625mg/day GPS: 22 History of Present Illness: Beverly Styles is a 60 y.o. female presents for MRI results. Pain started in LLE after lifting an object in September, She then immediate pain in the low back and LLE. he feels as if the pain is the same as when she herniated disc. Severity: 5-6/10 at times Descriptors: back-aching, LLE -electrical Aggravating Factors: prolonged sitting and standing Relieving Factors: lateral position, IT medications Associated Symptoms: radiating, numbness and tingling in the LLE, feels as if the foot drags at times Current Medication: Current Pain Medications cyclobenzaprine (Flexeril) 10 MG tablet escitalopram (Lexapro) 20 MG tablet Take 1 tablet (20 mg) by mouth 1 (one) time each day. pregabalin (Lyrica) 100 MG capsule traZODone (Desyrel) 100 MG tablet Take 1 tablet (100 mg) by mouth every night. IT pump infusing with Morphine Previous Medication: multiple Previous Conservation Treatment: heat ice rest Previous Interventions/Consults: 11/2021 left SIJ injection -no benefit 05/2019 IT pain pump 12/2018 LMD L5/S1 Failed multiple interventions in the past including RFA- by outside provider Other Medical History reports that she quit smoking about 45 years ago. Her smoking use included cigarettes. She started smoking about 10 months ago. She has never used smokeless tobacco. Diabetes: none A1C: none Anticoagulation: none Review of Systems: CONSTITUTIONAL: denies fevers, chills HEENT: denies swallowing difficulties, sore throat CARDIOVASCULAR: denies chest pain, palpitations, syncope RESPIRATORY: denies shortness of breath, cough, wheezing GI: as per HPI : as per HPI SKIN: denies rash, skin changes Psych: no depression or anxiety MSK: Per HPI NEURO: Per HPI General Physical Exam: Constitutional NAD; well nourished; conversant Head Normocephalic and atraumatic. Eyes Pupils are equal, round, and reactive to light; anicteric Neck Neck supple Cardiovascular Minimal to no peripheral edema, intact distal pulses Pulmonary/Chest Effort normal, no shortness of breath noted Neurological Alert and oriented to person, place, and time Skin Skin is warm and dry Psychiatric A & O X 4; mood/affect congruent with situation; denies suicidal ideation; no signsof impairment Neurologic & Musculoskeletal Exam Lumbar Region Exam Right (+/-) Left (+/-) Lumbar Musculature Tender w/ palpation + + Lumbar Facet Pain w/ extension - - Sacroiliac Joint Amy's Finger (PSIS) - - Sensation Right Left L2: Proximal Anterior Thigh Normal Normal L3: Mid Anterior Thigh Normal Normal L4: Medial leg/foot, great toe (Saphenous n.) Normal Normal L5: Dorsum of mid foot Normal Normal S1: Lateral leg/foot, little toe, back of leg (Sural n.) Normal Normal Motor Strength Right Left L2: Hip flexion (iliopsoas) 5/5 5/5 L3: Knee extension (quad) 5/ 5/5 L4: Ankle DF (TA) 5/5 5/5 L5: Great Toe DF (EHL) / 5 S1: Ankle PF, Foot Eversion (Peroneal longus/brevis) 10/14 5/ S2: Great toe flexion (FHL), Knee Flexion / 5 Imaging: Images of the following studies have been personally reviewed and my independent interpretation reveals as written: 08/04 Flex/Ex X-rays stable without change of movement. L5/S1 DDD Assessment & Plan: Beverly Styles is a 60 y.o. female with postlaminectomy syndrome s/p LMD at L5-S1 s/p [employer] ITDDS #Failed back syndrome chronic worsening #Lumbar Radicular pain LLE -S/p IT Pump following LMD L5/S1 12/2018 -IT pump infusing with Morphine and Bupivacaine - will refill today at current dose see pump nurse note for details -ELICEO Jan 2026 -UDS POC 10/28/2024; appropriate #Chronic Pain #Chronic Prescription Opioid Use -Drug therapy requiring intensive monitoring for toxicity A. Opioid agreement: on file B. UDS results reviewed: appropriate C. PDMP/HENRI report obtained today and reviewed: 02/13/25 D. As documented in the signed opioid agreement, the patient is aware of the risks associated with the administration of chronic opioids, including the risk of overdose and , the risk of developing misuse, abuse, and addiction to the prescribed medications, as well as the other risks associated with chronic opioid administration. Routine assessment for mental health conditions have been assessed during this visit, and the patient has been properly screened for substance use disorders (riskof developing and presence of these conditions). Cosigned by Tate Kaiser MD at 02/14/2025 12:43 PM EDT Associated attestation - Tate Kaiser MD - 02/14/2025 12:43 PM EDT I attest to being involved in providing substantive part of the medical decision making in patient care. Results of history and physical exam findings discussed with MALLY, I directed the plan of care. * Progress Notes - Tate Kaiser MD - 02/12/2025 1:00 PM EDTAssociated Order(s): Intrathecal Pump - Refill Pre-Procedure Diagnose(s): Presence of intrathecal pump Patient ID: Beverly Styles is a 60 y.o. female. Encounter Diagnoses Name Primary? Postlaminectomy syndrome, not elsewhere classified Yes Lumbar radiculopathy Intrathecal Pump - Refill Performed by: Tate Kaiser MD Authorized by: Tate Kaiser MD Patient ID: Beverly Styles is a 60 y.o. female. Patient presents for an intrathecal pump refill. Immediately prior to the procedure, a timeout was called and the patient's identity was confirmed. The patient's skin was cleansed thoroughly with ChloraPrep and sterile technique was maintained throughout the procedure. A [employer] refill kit was used. During the procedure 1 mL of medication was aspirated for every 5 mL injected into the reservoirto confirm placement. The patient tolerated the procedure without difficulty and no complications were encountered. Current Medication Morphine Concentration: 2.5 mg/mL Daily Dose: 0.7552 mg/day Bupivacaine Concentration: 12.0 mg/mL Daily Dose: 3.625 mg/day Medication Residual & Waste Expected Residual Volume: 3.2 mL Actual Residual Volume Wasted: 4.0 mL Waste Witnessed By: Bela Blue RN Refill Procedure Volume Injected (see MAR): 19.6 mL Alarm Date: 04/11/2025 documented in this encounter Plan of Treatment Upcoming Encounters Date Type Department Care Team (Late st Contact Info) Description 04/07/2025 1:00 PM EDT Office Visit [facility] Interventional Pain Medicine [address] [place] [phone] Dorothea Omalley R, VENDING MACHINE TECHNICIAN [address] [facility] [address] [place] [address] 04/07/2025 1:30 PM EDT Clinical Support [facility] Interventional Pain Medicine [address] [place] [address] Naomi Palumbo RN documented as of this encounter Procedures Procedure Name Priority Date/Time Associated Diagnosis Comments HC ANALYZE NEUROSTIMULATOR SIMPLE/PROGRAM PUMP REFILL Routine 02/12/2025 1:00 PM EDT Presence of intrathecal pump documented in this encounter Visit Diagnoses Diagnosis Postlaminectomy syndrome, not elsewhere classified- Primary Lumbar radiculopathy Thoracic or lumbosacral neuritis or radiculitis, unspecified documented in this encounter Additional Health Concerns Assessment Noted Time PHQ-9 Depression Total Score: 0 12/21/19 25 10:16 AM EDT A fall risk assessment has been complete d for the patient 02/13/2025 12:17 PM EDT A Body Mass Index follow-up plan has been documented for the patient 02/13/2025 12:23 PM EDT documented as of this encounter Care Teams Member Certification Manager Relationship Specialty Start Date End Date Camila Pat APRN [address] [place] [address] PCP - General 02/28/23 documented as of this encounter
--- OUTSIDE RECORDS SUMMARY | 2025-02-12 13:30 | XMS_ITS | Encounter Summary ---
Author Organization Healthcare Address [address] [place] [address] Care Team Providers Care Library Clerk Name Role Phone Camila Pat JINA Primary Care Provider +1- [phone] Reason for Visit * Reason Comments Back Pain LBP * Other Medical (Routine) - Closed Specialty Diagnoses / Procedures Referred By Contac t Referred To Contact Pain Medicine Diagnoses Presence of intrathecal pump Procedures Intrathecal [place] [address] [place] [address] [address] [place] [address] Phone: tel: fax: [facility] Interventional Pain Medicine [address] [place] [address] Phone: tel: fax: Referral ID Status Reason Start Date Expiration Date Visits Re quested Visits Authorized [id number] Closed 02/03/2025 08/05/2026 1 1 Encounter Details Date Type Department Care Team (Latest Contact Info) Description 02/12/2025 1:30 PM EDT Clinical Support [facility] Interventional Pain Medicine [address] [place] [phone] Naomi Palumbo, RN Presence of intrathecal pump (Primary Dx) Social History Tobacco Use Types Packs/Day Years Used Date Smoking Tobacco: Former Cigarettes 1 - 1979 Smokeless Tobacco: Never Tobacco Cessation:Counseling Given: Not Answered Alcohol Use Standard Drinks/Week Comments Not Currently [...] Reading Time Taken Comments Blood Pressure 125/76 02/13/2025 12:08 PM EDT Pulse 75 02/13/2025 12:08 PM EDT Temperature 36.9 C (98.4 F) 02/13/2025 12:08 PM EDT Respiratory Rate 16 02/13/2025 12:08 PM EDT Oxygen Saturation 94% 02/13/2025 12:08 PM EDT R/A Inhaled Oxygen Concentration - - Weight 58.1 kg (128 lb) 02/13/2025 12:08 PM EDT Height 170.2 cm (5' 7 ) 02/13/2025 12:08 PM EDT Body Mass Index 20.05 02/13/2025 12:08 PM EDT documented in this encounter Functional [...] energy Not at all 02/13/2025 12:18 PM EDT Naomi Palumbo RN Poor appetite or overeating [...] television Not at all 02/13/2025 12:18 PM EDT Naomi Palumbo RN Moving or speaking so [...] EDT Naomi Palumbo RN Patient Health Questionnaire -9 Score 0 02/13/2025 12:18 PM EDT Naomi Palumbo RN documented as of this encounter Miscellaneous Notes * Clinician Note - Naomi Palumbo RN - 02/12/2025 1:30 PM EDT Patient ID: Beverly Styles is a 60 y.o. female. Patient presents for an intrathecal pump refill. Immediately prior to the procedure, a timeout was called and the patient's identity was confirmed. The patient's skin was cleansed thoroughly with ChloraPrep and sterile technique was maintained throughout the procedure. A [employer] refill kit was used. During the procedure [...] Description 04/07/2025 1:00 PM EDT Office Visit [facility] Interventional Pain Medicine [address] [place] [phone] Dorothea Omalley, JINA [address] [facility] [address] [place] [address] 04/07/2025 1:30 PM EDT Clinical Support [facility] Interventional Pain Medicine [address] [facility] [place] [address] Naomi Palumbo, RN documented as of this encounter Procedures Procedure Name Priority Date/Time Associated Diagnosis Comments HC ANALYZE NEUROSTIMULATOR SIMPLE/PROGRAM PUMP REFILL Routine 02/12/2025 1:00 PM EDT Presence of intrathecal pump documented in this encounter Visit Diagnoses Diagnosis Presence of intrathecal pump- Primary documented in this encounter Administered Medications Inactive Administered Medications - up to 3 most recent administrations Medication Order MAR Action Action Date Dose Rate Site mixed intrathecal pump medication Intrathecal, Once, 1 dose, On Anamika 02/13/25 at 1315, RoutineIndications:Presence of intrathecal pump Given 02/13/2025 12:19 PM EDT 1 each documented in this encounter Additional Health Concerns Assessment Noted Time PHQ-9 Depression Total Score: 0 02/14/20 12:18 PM EDT A fall risk assessment has been complete d for the patient 02/13/2025 12:17 PM EDT A Body Mass Index follow-up plan has been documented for the patient 02/13/2025 12:23 PM EDT documented as of this encounter Care Teams Library Clerk Relationship Specialty Start Date End Date Camila Pat APRN [address] [place] [id number] PCP - General 02/28/23 documented as of this encounter
--- NOTE | 2025-03-12 13:46 | MM_ITS ---
PROCEDURE INFORMATION: Exam: MG Bilateral Screening 3D Mammography Exam date and time: 03/12/2025 2:03 PM Age: 60 years old Clinical indication: Screening. No family history of breast cancer. TECHNIQUE: Imaging protocol: Bilateral Screening tomosynthesis and 2D mammography including computer-aided detection (CAD) when performed. COMPARISON: 1. MG MM DIG SCREENING MAMM BI W/CAD 02/21/2024 3:05 PM 2. MG MM DIG SCREENING MAMM BI W/CAD 09/07/2022 12:55 PM 3. MG MM DIG MAMM DX UNILAT RT CAD 10/14/2020 2:49 PM FINDINGS: MAMMOGRAPHY: Breast composition: There are scattered areas of fibroglandular density. Mass: No suspicious mass. Architectural distortion: None. Calcifications: No suspicious calcifications. Asymmetric density: None. Skin thickening: None. Axillary adenopathy: None. IMPRESSION: No mammographic evidence of malignancy. Annual screening is recommended unless otherwise clinically indicated. ASSESSMENT: BI-RADS Category 1: Negative.
--- OUTSIDE RECORDS SUMMARY | 2025-03-12 13:46 | XMS_ITS | Data Portability ---
Author Organization [facility], [facility] [place] [facility] Address [address] [facility] [address] [place] [address] Care Team Providers Care Marine Electrician Name Role Phone NEO DOWD Primary Care Provider LEÓN POPE Incinerator Plant Supervisor Assessment No assessment recorded. Plan of Treatment Reminders Order Date Submit Date Provider Last Modified By Organization Details Last Modified Time Details Appointments None recorded. Lab surgical pathology study 2022 023 [facility], [address] [place] [address], [phone], 3 15:41:43 Referral None recorded. Procedures None recorded. Surgeries None recorded. Imaging None recorded. Medication Orders None recorded. Patient TargetsNo targets recorded. Patient InstructionsNo instructions recorded. Reason for Referral None Reported. Results Created Date Observation Date Name Description Value Unit Range Abnormal Flag Note LastModifiedBy Organization Detail LastModifiedTime Result Notes None recorded. Procedures Surgical History Date Name Laterality Status Provider Name and Address Organization Details Recorded Time 3 DAK - ED&C; trunk,arm,leg completed [facility] 05/08/2023 13:00:42 placement of stent in pulmonary artery completed [facility] 05/08/2023 12:45:03 Imaging Results None recorded. Procedure Notes None recorded. Medical Equipment None Reported. Allergies Allergen ID Allergen Name Allergen Category Reaction Reaction Severity Criticality Documentation Date Start Date Code Code System Note Provider Name and Address Organization Details Recorded Time [id number] doxycycli ne monohydra te medicatio n nausea Not available Not available 05/05/20162014 2 RxNorm React ion: NAUSE A; Comme nt: Creat ed By: Néstor Smith; Creat ed Date: 2014 3:20: 49 PM; Not Available [facility] 6 10:38:11 [id number] gabapenti n medicatio n Not available Not available Not available 03/05/2024 97815 RxNorm Debbie Diego [facility] 4 13:25:52 Medications Name Sig Start Date Stop Date Status Note LastModified by Organization Details LastModified Time Vitamin B-12 1,000 mcg/mL injection solution Once monthly active Duration : 10 days;Owen quency: 1x /month;M edicatio n Descript ion: cyanocob alamin; Dosage:a s directed ; Route:in jectable ; refills: 0; Quantity :30 solution Not Available Not Available Not Available alprazola m 1 mg tablet Three times a day 05/08 completed Duration : 10 days;Owen quency: tid;Medi cation Descript ion: alprazol am; Dosage:1 ; Route:or al; refills: 0; Quantity :20 tablet Not Available Not Available Not Available estradiol 1 mg tablet Every night at bedtime 05/08 completed Duration : 10 days;Owen quency: qhs;Medi cation Descript ion: estradio l; Dosage:1 ; Route:or al; refills: 0; Quantity :30 tablet Not Available Not Available Not Available trazodone 100 mg tablet Three times a day active Frequenc y: tid;Medi cation Descript ion: trazodon e; Dosage:2 ; Route:or al; refills: 0 Not Available Not Available Not Available Advair Diskus 500 mcg-50 mcg/dose powder for inhalatio n Two times a day 05/08 completed Duration : 30 days;Owen quency: bid;Medi cation Descript ion: fluticas one-salm eterol; Dosage:1 inhalati on; Route:in halation ; refills: 0; Quantity :1 powder Not Available Not Available Not Available omeprazol e 20 mg capsule,d elayed release Daily active Frequenc y: daily;Me dication Descript ion: omeprazo le; Dosage:1 ; Route:or al; refills: 0 Not Available Not Available Not Available Nasonex 50 mcg/actua tion [place] Daily 05/08 completed Instruct ions: each nostril; Frequenc y: daily;Me dication Descript ion: mometaso ne nasal; Dosage:2 ; Route:na marley; refills: 5; Quantity :1 spray Not Available Not Available Not Available tizanidin e 6 mg capsule Three times a day 05/08 completed Frequenc y: tid;Medi cation Descript ion: tizanidi ne; Dosage:1 ; Route:or al; refills: 0 Not Available Not Available Not Available Lyrica 200 mg capsule Three times a day active Frequenc y: tid;Medi cation Descript ion: pregabal in; Dosage:1 ; Route:or al; refills: 0 Not Available Not Available Not Available atorvasta tin active Not Available Not Available Not Available aspirin active Not Available Not Avail able Not Available cyclobenz aprine active Not Available Not Available Not Available metoprolo l succinate active Not Available Not Available No t Available ramipril active Not Available Not Avai lable Not Available Methadone Daily 05/08 completed Frequenc y: daily;Me dication Descript ion: methadon e; Dosage:5 ; Route:or al; refills: 0; Quantity :60 tablet Not Available Not Available Not Available ProAir HFA 90 mcg/actua tion aerosol inhaler As needed 05/08 completed Frequenc y: prn;Medi cation Descript ion: albutero l; Dosage:2 inhalati ons; Route:in halation ; refills: 0 Not Available Not Available Not Available Vitals None Recorded Social History Question Answer Notes LastModified by Organizat ion Details LastModified Time Tobacco Smoking Status Former Smoker quit 04/02 Debbie Diego [facility] 05/08/2023 12:44:02 What Was The Date Of Your Most Recent Tobacco Screening? 05/08/2023 [email or web address] Information not available 05/08/2023 Sex: Unknown Functional Status Question Answer Note LastModified by Organizat ion Details LastModified Time What is your level of alcohol consumption? Occasional [email or web address] Information not available 05/08/2023 Mental Status None recorded. Family History Relationship Description Onset Age of this Age Resolved Age Notes LastModified by Organization Details LastModified Time Maternal Grandfather Malignant neoplasm of skin Not available 05/08 12:43:44 Medical History Condition Response Squamous Cell Carcinoma Y Gynecological HistoryNo gynecological history recorded. Obstetrics History GPAL:G 0 P 0 0 0 0 Past Encounters Encounter ID Performer Location Encounter Start Date Encounter Closed Date Diagnosis/Indication Diagnosis SNOMED-CT Code Diagnosis ICD10 Code Diagnosis IMO Codes Diagnosis Note [id number] LEÓN POPE MD [address] [id number] 05/08/2023 11:55:28 05/09/2023 05:27:40 Neoplasm of uncertain behavior of skin 15404102 D48.5 A blade biopsy and ED&C was performed. Wound care given. Will fup with results. [id number] LEÓN POPE MD [address] [phone] 03/05/2024 13:07:29 03/05/2024 14:52:04 History of malignant neoplasm of skin 610741533 Z85.828 L90.5 - No evidence of recurrence today - Call with any worrisome lesions or if treated lesions return - Return at regular intervals for skin exam as recommende d Multiple b enign melanocytic nevi 002342913 D22.5 - Benign lesions seen on exam today- SPF 30 or higher broad-spec trum sunscreen recommende d with re-applica tion every 2 hours- Discussed sun protection measures, including wide-brimm ed hat, sun-protec tive clothing, and avoidance of sun during peak hours of 10am-4pm- Instructed to monitor for changes and to call us for appointmen t with any changing or worrisome lesions Seborrheic keratosis [id number] L82.1 - Benign overgrowth s of skin - Hereditary Senile angioma 5100937 I 78.1 - Benign blood vessel growths - Hereditary Solar lentigo 47235652 L 81.4 - Benign brown spots - Sun-induce d Scar [id number] L90.5 Benign appearing. FUP with changes or concerns. Health Concerns Section Related Observation LastModified by Organization Detai ls LastModified Time None Recorded Concern Status LastModified by Organization Details LastModified Time None Recorded Advance Directives Directive None Recorded Payers Insurance Date Sequence Insurance Name Policy Number Policy Godinez Covered Member ID Godinez Member ID Guarantor Name 02/24/2025 1 [employer] (MEDICARE REPLACEMENT/A DVANTAGE - PPO) [id number] Beverly Styles [id number] Beverly Styles Notes Date Note Type Note Provider Name and Address Organization Details Recorded Time 05/08/2023 text/html ROS as noted in the HPI I have a spot on my L anterior lower leg. It was a scabby spot that started growing. It's painful. LEÓN POPE MD [address] [place], [address], [facility] 05/08/2023 13:04:16 03/05/2024 text/html ROS as noted in the HPI skin checkhx of SCC - L anterior lower leg, L thumbspot on L upper lipspot on L leg LEÓN POPE MD [address] [place], [address], [facility] 03/05/2024 14:29:01 OBGyn Episode No OBEpisode recorded.
--- OUTSIDE RECORDS SUMMARY | 2025-03-12 13:46 | XMS_ITS | Clinical Summary ---
Author Organization [facility] Address [address] [place] [address] Care Team Providers Care Leather Novelty Parts Cutter Name Role Phone Camila Pat MAGNETIC TAPE WINDER Primary Care Provider [phone]- [phone] Allergies Active Allergy Reactions Criticality Noted Date Comments Doxycycline Nausea,Other - pleas e document in the comment field Low 08/27/2014 Other reaction(s): Nausea Gabapentin Other - please docum ent in the comment field Low 06/03/2021 Other reaction(s): sweating, edema Other reaction(s): Flushing Medications cyclobenzaprine (Flexeril) 10 MG tablet 12/31/19 21 Active fluticasone (Flonase) 50 MCG/ACT nasal spray INSTILL 1 SPRAY IN EACH NOSTRIL TWICE DAILY 11/28/19 21 Active omeprazole (PriLOSEC) [address] capsule 12/06/19 19 Active pregabalin (Lyrica) 100 MG capsule 10/20/19 19 Active tiotropium-olodat brandi (Stiolto Respimat) 2.5-2.5 MCG/ACT aerosol solution inhaler 08/05/19 21 Active hydrOXYzine pamoate (Vistaril) 25 MG capsule TAKE 1 TO 2 CAPSULE(S) BY MOUTH EVERY 8 HOURS NEEDED FOR anxiety MAY CAUSE DROWSINESS 03/05/20 21 Active metoprolol succinate XL (Toprol-XL) 25 MG 24 hr tablet Take 1 tablet (25 mg) by mouth 1 (one) time each day. 03/05/20 21 Active nitroglycerin (Nitrostat) 0.4 MG SL tablet DISSOLVE 1 TABLET UNDER THE TONGUE EVERY 5 MINUTES NEEDED FOR CHEST PAIN. DO NOT EXCEED A TOTAL OF 3 DOSES IN 15 MINUTES. IF NO RELIEF AFTER 3 DOSES CALL 911/GO TO ER 04/28/20 21 Active cyanocobalamin (Vitamin B-12) 1000 MCG/ML injection INJECT 1000 MCG (1ml) INTRAMUSCULARLY ONCE A MONTH 10/30/19 22 Active B-D 3CC LUER-BRIANNA SYR 25GX1 25G X 1 3 ML misc USE DIRECTED ONCE a MONTH with b-12 injection 10/21/19 22 Active escitalopram (Lexapro) 20 MG tablet Take 1 tablet (20 mg) by mouth 1 (one) time each day. 10/22/19 22 Active naloxone (Narcan) 4 mg/0.1 mL nasal spray Administer 1 spray (4 mg total) into affected nostril(s) if needed for opioid reversal for up to 1 dose. Call 911. Give 4 mg (1 spray) into one nostril. Repeat every 2-3 minutes as needed, alternating nostrils, until medical assistance arrives. 1 each 1 12/09/19 22 Active UNABLE TO FIND Med Name: Morphine 2mg/ml in P F N S 20 each 02/03/20 22 Active B-D 3CC LUER-BRIANNA SYR 23GX1 23G X 1 3 ML misc USE DIRECTED ONCE monthly 07/08/19 23 Active clopidogrel (Plavix) 75 MG tablet Take 1 tablet (75 mg) by mouth 1 (one) time each day. Active ramipril (Altace) 5 MG capsule Take 1 capsule (5 mg) by mouth 1 (one) time each day. Active bisoprolol (Zebeta) 10 MG tablet Take 1 tablet (10 mg) by mouth 1 (one) time each day. Active albuterol 108 (90 Base) MCG/ACT inhaler Four times a day 03/22/20 23 Active ondansetron (Zofran) 4 MG tablet Take 1 tablet (4 mg) by mouth every 8 (eight) hours if needed for nausea. Active valACYclovir (Valtrex) 500 MG tablet TAKE ONE TABLET BY MOUTH TWICE DAILY FOR 5 DAYS Active alendronate (Fosamax) 35 MG tablet Take 1 tablet (35 mg) by mouth every 7 (seven) days. 02/27/20 24 Active ranolazine (Ranexa) 500 MG 12 hr tablet Take 1 tablet (500 mg) by mouth 2 (two) times a day. 01/27/20 24 Active atorvastatin (Lipitor) 40 MG tablet Take 1 tablet (40 mg) by mouth 1 (one) time each day. 01/27/20 24 Active isosorbide mononitrate ER (Imdur) 60 MG 24 hr tablet Take 1 tablet (60 mg) by mouth 1 (one) time each day. 01/27/20 24 Active traZODone (Desyrel) 100 MG tablet Take 1 tablet (100 mg) by mouth every night. 01/27/20 24 Active levocetirizine (Xyzal) 5 MG tablet Take 1 tablet (5 mg) by mouth 1 (one) time each day in the evening. 06/27/19 25 Active oxyCODONE-acetami nophen (Percocet) 5-325 MG tablet 02/08/20 25 Active amoxicillin (Amoxil) 500 MG capsule take one capsule by mouth three times daily until gone 02/06/20 25 Active ondansetron ODT (Zofran-ODT) 8 MG disintegrating tablet DISSOLVE ONE TABLET in MOUTH EVERY 8 HOURS 01/29/20 25 Active Hospital, Clinic, or Other Facility Administered Medication Ordered Dose Route Frequency Start Date End Date Status mixed intrathecal pump medicationIndications:Prese nce of intrathecal pump 1 each IT Once 02/13/2025 02/13/2025 E nded Active Problems Problem Noted Date Diagnosed Date Abnormal weight loss 07/09/2024 Left radial nerve palsy 07/09/2024 Personal history of adenomatous and serrated col on polyps 07/09/2024 Opioid use 05/11/2024 Chronic hypoxemic respiratory failure 08/31/2023 Essential hypertension 07/03/2023 Hypertension 07/03/2023 High blood pressure 07/03/2023 Borderline high blood pressure 07/03/2023 HTN (hypertension) 07/03/2023 Abnormal result of cardiovascular function study 05/01/2023 05/01/2023 Diaphoresis 05/01/2023 05/01/2023 Dyspnea 05/01/2023 05/01/2023 HLD (hyperlipidemia) 05/01/2023 05/01/2023 ILD (interstitial lung disease) 05/01/2023 05/01/[address] 05/01/202304/13 Pulmonary emphysema 05/01/2023 05/01/2023 Smoking greater than 30 pack years 05/01/2023 05/01/2023 Unstable angina 05/01/2023 05/01/2023 Coronary artery disease 12/28/2022 12/29/19 Presence of intrathecal pump 05/31/2019 Failed back syndrome 03/07/2019 12/28/2022 Lumbar radiculitis 03/07/2019 12/28/2022 HNP (herniated nucleus pulposus), lumbar 019 12/28/2022 Low back pain 07/18/2017 GERD (gastroesophageal reflux disease) 4 12/28/2022 Granulomatous disease 08/07/2013 12/28/2022 Mediastinal lymphadenopathy 08/07/201312/10 Allergic rhinitis 06/11/2013 12/28/2022 Extrinsic asthma, with acute exacerbation 201212/28/2022 Resolved Problems Problem Noted Date Diagnosed Date Resolved Date Chronic diarrhea 07/03/2023 03/02/2025 Abnormal electrocardiogram (ECG) (EKG) 05/01/202303/02/2025 Vomiting 05/01/2023 05/01/2023 03/02/2025 Encounter for laboratory agnes ting for COVID-19 virus 05/02/2022 03/02/2025 Numbness and tingling of foot 07/18/2017 12/28/2022 03/02/2025 Acute bronchitis 06/11/2013 12/28/2022 03/02/2025 Encounters Date Type Department Care Team Description 02/12/2025 1:30 PM EDT Clinical Support [facility] Interventional Pain Medicine [facility] [place] [address] Naomi Palumbo, RN Presence of intrathecal pump (Primary Dx) 02/12/2025 1:00 PM EDT Office Visit [facility] Inter[facility] Medicine [address] [place] [phone] Tate Kaiser MD Postlaminectomy syndrome, not elsewhere classified (Primary Dx); Lumbar radiculopathy 02/12/2025 Travel 12/20/2024 10:00 AM EDT Clinical Support [facility] [address] [place] [phone] Naomi Palumbo, RN Presence of intrathecal pump (Primary Dx); Failed back syndrome 12/20/2024 Travel 12/19/[address] [facility] [address] [place] [address] Naomi Palumbo, RN HCN - Patient Message from Last 3 Months Immunizations Immunization Administration Dates Next Due Hep A, Adult 07/14/2018 Influenza, injectable, MDCK, preservative free, quadrivalent 02/28/2023,02/25/2021 Influenza, injectable, quadrivalent 04/13/2018 Influenza, recombinant, quad rivalent, injectable, preservative free 06/27/2024 Stacey COVID-19 Vaccine (Blue Cap) 18+ 05/01/20,08/20/2020 Pneumococcal 20-raquel Conj Vaccine 02/28/2023 Tdap 01/31/2024 Zoster, Recombinant 11/14/2018,07/14/2018 Family History Medical History Relation Name Comments Cardiac disorder Father Conversions - Other Mother Lewy bod y dementia Colon cancer Other Conversions - Other Sister Pulmonar y classical histoplasmosis Relation Name Status Comments Father Mother Other Sister Social History Tobacco Use Types Packs/Day Years [...] on file Sexual Orientation Not on file Last Filed Vital Signs Vital Sign Reading [...] Mass Index 20.05 02/13/2025 12:08 PM EDT Plan of Treatment Upcoming Encounters Date Type Department Care Team (Late st Contact Info) Description 04/07/2025 1:00 PM EDT Office Visit [facility] Inter[facility] Medicine [address] [place] [address] Dorothea Omalley R, MAGNETIC TAPE WINDER [address] [facility] [address] [place] [address] 04/07/2025 1:30 PM EDT Clinical Support [facility] Medicine [address] [place] [address] Naomi Palumbo, RN Health Maintenance Due Date Last Done Comments [facility]-HIV Screening 1965 [facility]-Hepatitis C Screening 1965 [facility]-Medicare Annual Wellness (AWV) 1965 [facility]-Infant/Child/Adol SDOH Screenings 1963 [facility]- SDOH Screenings 1981 [facility]-Adult SDOH Screenings 1981 CT Colonography 01/15/2008 Colonoscopy 01/15/2008 FIT-DNA 01/15/2008 FIT 01/15/2008 FOBT 01/15/2008 Sigmoidoscopy 01/15/2008 [facility]-Colorectal Cancer Screening 01/15/2008 [facility]-Breast Cancer Screening 2013 [facility]-RSV Vaccine: 60+ Years or (1 - Risk 60-74 years 1-dose series) 2023 [id number] Vaccine (2024- season) 2025 04/11/2022, 05/01/2021, 08/20/2020 [facility]-Influenza Vaccine (#1) 02/10/202506/27, 02/28/2023, 02/25/2021, Additional history exists [facility]-Depression Screening 02/13/2026 02/13/2025, 09/2024 [facility]-DTaP,Tdap,and Td Vaccines (2 - Td or Tdap) 01/30/2034 01/31/2024 [facility]-Hepatitis A Vaccines Aged Out 07/14/2018 No longer eligible based on patient's age to complete this topic [facility]-Zoster Vaccines Completed 11/14/2018, [facility]-Pneumococcal Vaccine: 50+ Years Completed 02/28/2023 HPV Vaccines Aged Out No longer eligi ble based on patient's age to complete this topic [facility]-HIB Vaccines Aged Out No longer e ligible based on patient's age to complete this topic [facility]-IPV Vaccines Aged Out No longer e ligible based on patient's age to complete this topic [facility]-Rotavirus Vaccines Aged Out No lo nger eligible based on patient's age to complete this topic Medical Devices Implanted Type Area Batter Mixer Device Identifier Shelf Expiration Date Model / Serial / Lot Pain Pump-05/20/2019 Implanted:02/2019 by Tate Kaiser MD (Quantity not on file) Pain Pump Right: Abdomen Medtronic [id number] / [id number] / Procedures Procedure Name Priority Date/Time Associated Diagnosis Comments HC ANALYZE NEUROSTIMULATOR SIMPLE/PROGRAM PUMP REFILL Routine 02/12/2025 1:00 PM EDT Presence of intrathecal pump from Last 3 Months Results * HC ANALYZE NEUROSTIMULATOR SIMPLE/PROGRAM PUMP REFILL (02/12/2025 1:00 PM EDT) Narrative Tate Kaiser MD - 02/12/2025 1:00 PM EDT Tate Kaiser MD 02/14/2025 12:43 PM Intrathecal Pump - Refill Performed by: Tate Kaiser MD Authorized by: Tate Kaiser MD Tate Kaiser MD IN CLINIC/BEDSIDE ORDERABLES Final Result from Last 3 Months Insurance [employer] MEDICARE Care Teams Leather Novelty Parts Cutter Relationship Specialty Start Date End Date Camila Pat APRN [address] [place], [place] [phone] PCP - General 02/28/23
--- OUTSIDE RECORDS SUMMARY | 2025-03-12 13:46 | XMS_ITS | Encounter Summary ---
Author Organization Healthcare Address [address] [place] [address] Care Team Providers Care Greenhouse Staff Name Role Phone Camila Pat JINA Primary Care Provider +1- [phone] Encounter Details Date Type Department Care Team (Latest Contact Info) Description 02/12/2025 Travel Social History Tobacco Use Types Packs/Day Years [...] on file documented as of this encounter Plan of Treatment Upcoming Encounters Date Type Department Care Team (Late st Contact Info) Description 04/07/2025 1:00 PM EDT Office Visit [facility] Interventional Pain Medicine [address] [place] [address] Dorothea Omalley, JINA [address] [facility] [address] [place] [address] 04/07/2025 1:30 PM EDT Clinical Support [facility] Interventional Pain Medicine [address] [place] [address] Naomi Palumbo, RN documented as of this encounter Visit Diagnoses Not on filedocumented in this encounter Additional Health Concerns Assessment Noted Time PHQ-9 Depression Total Score: 0 12/21/19 25 10:16 AM EDT A fall risk assessment has been complete d for the patient 02/13/2025 12:17 PM EDT A Body Mass Index follow-up plan has been documented for the patient 02/13/2025 12:23 PM EDT documented as of this encounter Care Teams Greenhouse Staff Relationship Specialty Start Date End Date Camila Pat APRN [address] [place] [address] PCP - General 02/28/23 documented as of this encounter
--- NOTE | 2025-03-12 13:49 | CT_ITS ---
FINAL REPORT TECHNIQUE: Thin section axial images were obtained from the lung apices to the upper abdomen by computed tomography. Reformatted images were obtained and reviewed. This study was performed with techniques to keep radiation doses al low as reasonably achievable (ALARA). Individualized dose reduction techniques using automated exposure control or adjustment of mA and/or kV according to the patient's size were employed. CLINICAL HISTORY: SCREENING current smoker 1ppd x46 years COMPARISON: 02/21/2024 FINDINGS: CHEST CT LOW DOSE 60-year-old female, current smoker, 80-idkr-atly history. CTDI vol (mGy): 2.90 DLP (mGy-cm): 106.55 There is no axillary adenopathy. There is a stable precarinal node measuring 1.9 cm in diameter, best seen on image #35 of series 3. The heart is normal in size. There is no pericardial or pleural effusion. Lung window images demonstrate a stable noncalcified nodule in the anterior left upper lobe measuring 6 mm in size, best seen on image #30 of series 4. There is a nodule in the anterior right upper lobe measuring 4 mm, best seen on image #29 of series 4, also stable. There are moderate coarse mostly peripheral opacities noted that are likely chronic.. Limited images of the upper abdomen are unremarkable. IMPRESSION: Lung-RADS category 1. Recommend 12 month follow up low dose chest CT. Reviewed, Interpreted and Dictated by Mohsen Rojas MD Transcribed by Marilyn Haile Authenticated and . [facility]
== END 2025-03-12 23:59 | disposition home or self-care (01) ==
LOC: RAD 13:44
PROVIDERS: PCP Internal Medicine Adolescent Medicine; Visit Provider Nurse Practitioner Family
DX: Z12.31 Encounter for screening mammogram for malignant neoplasm of breast (principal); R92.323 Mammographic fibroglandular density, bilateral breasts; Z12.2 Encounter for screening for malignant neoplasm of respiratory organs; R91.8 Other nonspecific abnormal finding of lung field; F17.210 Nicotine dependence, cigarettes, uncomplicated
CPT/HCPCS: 71271; 77063; 77067